=== PATIENT | female | born 1930 | race Caucasian/White ===

== ENCOUNTER 2016-09-19 15:04 | Emergency (ER) | payer MEDICARE, BC ==
[2016-09-19 15:42] VITALS: TEMP 98.2; BMI 22.8
--- NOTE | 2016-09-19 16:33 | DIRPT ---
CLINICAL DATA: 86-year-old female with left hip pain for 2 days, no known injury. Initial encounter. EXAM: LEFT HIP (WITH PELVIS) 2-3 VIEWS COMPARISON: Left hip series 11/18/12 FINDINGS: Since 2012, fractures about the right pubic symphysis with callus formation have developed. These appear chronic. Femoral heads remain normally located. Hip joint spaces appear stable. Elsewhere the pelvis appears intact. Proximal right femur appears grossly intact. Proximal left femur stable and intact. Chronic Aortoiliac calcified atherosclerosis noted. Chronic pelvic phleboliths. IMPRESSION: 1. No acute osseous abnormality identified about the left hip or pelvis. 2. Chronic appearing right pubic symphysis fractures, new since 2012. Electronically Signed By: Robina Gordon M.D. On: 09/19/2016 16:31
[2016-09-19] MEDS ORDERED: ONDANSETRON HCL 4 MG/2 ML VIAL IV ONE (21:30)
[2016-09-19] MEDS ORDERED: MORPHINE 4 MG/ML INJECTION IV ONE (21:30)
[2016-09-19] MEDS ORDERED: NS 1,000 ML IV ONE (21:30)
--- NOTE | 2016-09-19 21:47 | EDPRACDOC ---
ED Hip Problem HPI - General Information Chief Complaint: Hip Pain Stated Complaint: LT LEG PAIN Time Seen by Provider: 09/19/16 20:56 Information Source: Patient Mode of Arrival: Car Home Medications: Home Medications Albuterol Sulfate Nebs [Proventil, Ventolin] 3 ml NEB Q6H PRN 05/11/16 Albuterol Sulfate [Proair Hfa] 2 puff INH Q4-6H PRN 05/11/16 Alprazolam [Xanax] 0.25 mg PO BID PRN 05/11/16 Amlodipine [Norvasc] 10 mg PO DAILY PRN 05/11/16 Ca/D3/Mag#11/Zinc/Gas Engine Operator/[place]/Bor [Caltrate 600+D Plus Tablet] 1 tab PO DAILY 05/11 Citalopram (anti-depressant) [Celexa] 40 mg PO DAILY 05/11/16 Doxepin HCl 150 mg PO QHS 05/11/16 Levothyroxine [Synthroid, Levoxyl] 25 mcg PO DAILY 05/11/16 Mv-Mn/FA/Vit K/Lycop/Lut/Zeaxa [Ocuvite Eye + Multi Tablet] 1 tab PO DAILY 05/11 Ciprofloxacin HCl [Cipro] 500 mg PO BID #20 tab 09/19/16 Fluticasone/Vilanterol [Breo Ellipta 100-25 Mcg INH] 1 each INH DAILY 09/19/16 Oxycodone Immediate Release [Oxycodone Immediate Release (OxyIR)] 5 mg PO Q6H PRN #20 tab 09/19/16 PEG-Electrolytes (Miralax) [Miralax] 17 gm PO DAILY #1 box 09/19/16 Prednisone [Deltasone, Orasone] 20 mg PO BID #12 tab 09/19/16 Allergies/Adverse Reactions: Allergies Allergy/AdvReac Type Severity Reaction Status Date / Time No Known Drug Allergies Allergy Unknown Verified 09/19/16 19:46 - History of Present Illness Onset: 4 days HPI: PT PRESENTS WITH SEVERE LEFT THIGH, LEFT HIP AND GROIN PAIN THAT SHE STATES HAS BEEN WORSENING OVER THE PAST SEVERAL DAYS. STATES SHE HAS NOT FALLEN IN THE LAST FEW DAYS BUT HAS IN THE PAST MONTH. STATES SHE KNOWS SHE HAS CHRONIC PELVIC FRACTURES. STATES THIS PAIN IS WORSE THAN ANY PAIN SHE HAS EVER HAD. PT STATES SHE IS UNABLE TO AMBULATE. Hip Problem Location: Reports: Left, Lateral, Hip, Groin Mechanism: Reports: Unknown Circumstances: Reports: Fall (NO RECENT FALLS) Relevant History: Reports: None Tetanus Up To Date?: No (UNKNOWN) Able to Bear Weight: No Pain Severity: Moderate Associated Signs & Symptoms: Reports: Thigh Pain ED Past Medical History - History Reviewed Yes Nurses notes reviewed and agree except as marked - Patient Medical History Cardiac History: Reports: Hypertension, Hypercholesterolemia Respiratory History: Reports: Asthma, COPD GI/ History: Reports: Gastroesophageal Reflux Musculoskeletal History: Reports: Arthritis (OA) Psychological History: Reports: Depression. Denies: Substance Use Disorder Systemic History: Reports: Hypothyroidism. Denies: Cancer Surgical History: Reports: Cholecystectomy, Tonsillectomy/Adnoidectomy - Family Medical History Reports: Cancer (MOTHER-BREAST), Stroke (SISTER) - Social Medical History Smoking Status: Never smoker Social History: Denies: Amphetamine Use, Substance Use Disorder EDM Review of Systems - Review of Systems ROS Negative Except as Marked: Yes All systems reviewed and were negative except as marked - Physical Exam Constitutional: Alert (PT APPEARS UNCOMFORTABLE) Oriented to: Time, Person, Place Last recorded Vital Signs: Last Vital Signs Temp 98.2 F 09/19/16 15:36 Pulse 108 09/19/16 21:31 Resp 20 09/19/16 21:31 BP 203/93 H 09/19/16 21:31 Pulse Ox 98 09/19/16 21:31 Oxygen Pulse Oxygen Saturation 98 O2 Device Oxygen Flow Rate Fraction of Inspired Oxygen ( FIO2) - HEENT Head: Normal ( normocephalic) Eye Exam: Normal (PERRL, EOMI, Sclera white) Oropharynx: Normal (Pharynx:Moist without exudate,Gums-no swelling) Nose: No Symptoms Reported (septum midline) Neck: Normal (FROM, trachea at midline) - Respiratory/Cardiovascular Respiratory: Normal - CTA (BBS clear to auscultation without adventitious sounds ) Cardiovascular: Normal (RRR without murmur, gallop or rub) - GI Auscultation: Normal (NABS) Palpation: Normal (Soft,No rebound or guarding, non distended) Tenderness: Non tender Ernandez's Sign: Negative - Musculoskeletal Back: Normal (Non-Tender) Extremities: Normal (Normal tone, Pulses 2+ No cyanosis or edema, FROM) - Integumentary Skin: Normal, Warm, Dry Lymphatics: Normal (no adenopathy) - Neurologic Memory Impaired: Normal Motor Function: Normal (Normal tone, Pulses 2+ No cyanosis or edema, FROM) Cranial Nerve: Normal (CN II-X11 intact sensation, strength 5/5) Cerebellar: Normal Mood Description: Normal Perception: Normal ED Hip Problem Physical Exam - Musculoskeletal Hip: Limited ROM, Moderate tenderness Hip Deformity: Normal Pelvis: Tender Thigh: Moderate Tenderness Back: Normal Distal Function/Circulation: Normal - Differential Diagnosis Other - Results All Results Reviewed and Normal except as Highlighted below: Yes 09/19/16 22:20 09/19/16 22:20 Decision Time to Discharge: 23:41 - Departure Disposition: Home Condition: Stable Final Diagnosis: Left hip pain Instructions: RICE: Routine Care for Injuries, Hip Pain (ED) Education/Counseling Given To: Patient Education/Counseling Given Regarding: Diagnosis, Treatment, Prognosis, Follow Up Referrals: Dilshad Hackett MD [Primary Care Provider] - One Week Prescriptions: Ciprofloxacin HCl [Cipro] 500 mg PO BID #20 tab Oxycodone Immediate Release [Oxycodone Immediate Release (OxyIR)] 5 mg PO Q6H PRN #20 tab PRN Reason: Pain PEG-Electrolytes (Miralax) [Miralax] 17 gm PO DAILY #1 box Prednisone [Deltasone, Orasone] 20 mg PO BID #12 tab Additional Instructions: ICE OR HEAT THE AFFECTED AREA ~ WHICHEVER FEELS BETTER. FOLLOW UP WITH PCP NEXT WEEK. RETURN TO THE ED FOR WORSENING SYMPTOMS OR CONCERNS.
[2016-09-19] MEDS ORDERED: Pharmacy Review for Metformin - IV Contrast Given SCH (22:00)
[2016-09-19 22:36] LABS: AUTOMATED BASOPHIL 0.5 % (0-2); AUTOMATED LYMPH 11.9 % (17-44); AUTOMATED MONOCYTE 7.8 % (3-10); AUTOMATED NEUTROPHIL 78.8 % (45-76); MPV 9.3 fL (7.4-10.4)
[2016-09-19 22:43] LABS: RBC/URINE 0-2 (0-5); WBC/URINE 0-2 (0-5)
[2016-09-19 22:44] LABS: LEUKOCYTES/URINE NEG (NEGATIVE); NITRITE/URINE NEG (NEGATIVE); URINE OCCULT BLOOD NEG (NEG/TRACE)
[2016-09-19 22:51] LABS: BLOOD UREA NITROGEN 29 MG/DL (7-17); CALCIUM 9.5 MG/DL (8.4-10.2); CALCULATED OSMOLALITY 270 MOs/Kg (270-290); CHLORIDE 102 mEq/L (98-107); GLUCOSE 94 MG/DL (70-99); SODIUM LEVEL 137 mEq/L (137-146); TOTAL PROTEIN 7.4 G/DL (6.3-8.2)
--- NOTE | 2016-09-19 23:27 | DIRPT ---
CLINICAL DATA: 86-year-old female with left hip and groin pain. EXAM: CT OF THE LOWER LEFT EXTREMITY WITHOUT CONTRAST TECHNIQUE: Multidetector CT imaging of the left was performed according to the standard protocol. COMPARISON: Radiograph dated 09/19/2016 FINDINGS: Evaluation of this exam is limited in the absence of intravenous contrast. There is no acute fracture or dislocation. There is old right pubic bone fracture adjacent to the symphysis pubis. There is osteoarthritic changes of the left hip with proximal migration of the left femur and narrowing of the femoro-acetabular joint space. Constipation. There is diverticulosis of the visualized colon. The soft tissues and musculature appear unremarkable. No fluid collection identified. IMPRESSION: No acute fracture or dislocation. Electronically Signed By: Misha Esteban M.D. On: 09/19/2016 23:25
[2016-09-19] MEDS ORDERED: CIPROFLOXACIN HCL 500 MG TAB PO ONE (23:47)
[2016-09-19] MEDS ORDERED: OXYCODONE HCL 5 MG TABLET PO ONE (23:47)
[2016-09-20 00:04] VITALS: BP 136/63; PULSE 110
== END 2016-09-20 00:03 | disposition home or self-care (01) ==
LOC: ED 15:04
DX: M25.552 Pain in left hip (principal)
CPT/HCPCS: 36415; 73502; 73700; 80053; 81001; 85025; 96361; 96374; 96375; 99284; A9270; J2270; J2405; J3490

== ENCOUNTER 2016-09-27 21:02 | Inpatient (IN) | payer MEDICARE, BC ==
[2016-09-27 21:37] LABS: AUTOMATED BASOPHIL 0.2 % (0-2); AUTOMATED EOSINOPHIL 0.2 % (0-5); AUTOMATED LYMPH 5.8 % (17-44); AUTOMATED MONOCYTE 7.8 % (3-10)
--- NOTE | 2016-09-27 21:38 | EDPRACDOC ---
- General Information Information Source: Patient, [employer] Mode Of Arrival: Ambulance - History of Present Illness Onset: this am Pain Location: Reports: Diffuse Pain Context: Reports: Spontaneous Pain Severity: Moderate Pain Quality: Reports: Aching, Cramping Pain Radiation: Reports: No Radiation Adult Abdominal History: Denies: Abdominal Surgery, Urolithiasis, Bowel Obstruction, Similar Pain (dx) Female Abdominal History: Denies: Abdominal Surgery, UTI, Ectopic, PID, Urolithiasis, Similar Pain (dx) Modifying Factors: improves with: Nothing Female Associated Signs & Symptoms: Reports: Nausea, Vomiting, Diarrhea. Denies : Frequency, Vaginal Bleeding, Hematemesis, Anorexia, Melena, Dysuria, Fever, Urgency, Hematuria, Chills, Vaginal Discharge Oral Intake: Decreased Urinary Output: Normal <Dilshad Osborn - Last Filed: 09/28/16 00:18> <Cassidy Maher - Last Filed: 09/28/16 00:27> - General Information Chief Complaint: Abdominal Pain Stated Complaint: ABD PAIN, N/V Time Seen by Provider: 09/27/16 21:31 Home Medications: Home Medications Albuterol Sulfate Nebs [Proventil, Ventolin] 3 ml NEB Q6H PRN 05/11/16 Albuterol Sulfate [Proair Hfa] 2 puff INH Q4-6H PRN 05/11/16 Alprazolam [Xanax] 0.25 mg PO BID PRN 05/11/16 Amlodipine [Norvasc] 10 mg PO DAILY PRN 05/11/16 Ca/D3/Mag#11/Zinc/Food Service Cashier/[place]/Bor [Caltrate 600+D Plus Tablet] 1 tab PO DAILY 05/11 Citalopram (anti-depressant) [Celexa] 40 mg PO DAILY 05/11/16 Doxepin HCl 150 mg PO QHS 05/11/16 Levothyroxine [Synthroid, Levoxyl] 25 mcg PO DAILY 05/11/16 Mv-Mn/FA/Vit K/Lycop/Lut/Zeaxa [Ocuvite Eye + Multi Tablet] 1 tab PO DAILY 05/11 Ciprofloxacin HCl [Cipro] 500 mg PO BID #20 tab 09/19/16 Fluticasone/Vilanterol [Breo Ellipta 100-25 Mcg INH] 1 each INH DAILY 09/19/16 Oxycodone Immediate Release [Oxycodone Immediate Release (OxyIR)] 5 mg PO Q6H PRN #20 tab 09/19/16 PEG-Electrolytes (Miralax) [Miralax] 17 gm PO DAILY #1 box 09/19/16 Prednisone [Deltasone, Orasone] 20 mg PO BID #12 tab 09/19/16 Allergies/Adverse Reactions: Allergies Allergy/AdvReac Type Severity Reaction Status Date / Time No Known Drug Allergies Allergy Unknown Verified 09/19/16 19:46 - History of Present Illness HPI: PT STATES N/V/D ALL DAY, COMPLAINS OF DIFFUSE CRAMPING ABDOMINAL PAIN, RECENTLY DX WITH DIVERTICULITIS, ON ABX FOR SAME. NO FEVER OR CHILLS, NO CP OR SOBR. ( Dilshad Osborn) ED Past Medical History - History Reviewed Yes Nurses notes reviewed and agree except as marked - Patient Medical History Cardiac History: Reports: Hypertension, Hypercholesterolemia Respiratory History: Reports: Asthma, COPD GI/ History: Reports: Gastroesophageal Reflux Musculoskeletal History: Reports: Arthritis (OA) Psychological History: Reports: Depression. Denies: Substance Use Disorder Systemic History: Reports: Hypothyroidism. Denies: Cancer Surgical History: Reports: Cholecystectomy, Tonsillectomy/Adnoidectomy - Family Medical History Reports: Cancer (MOTHER-BREAST), Stroke (SISTER) - Social Medical History Smoking Status: Never smoker Social History: Denies: Amphetamine Use, Substance Use Disorder ETOH: None Substance Abuse: None <Dilshad Osborn - Last Filed: 09/28/16 00:18> EDM Review of Systems - Review of Systems Constitutional: negative: Chills, Fever, Fatigue, Weakness Eyes: negative: Blurred Vision, Double Vision Ears: negative: Drainage Throat: negative: Pain Nose: negative: Congestion, Discharge Respiratory: negative: Cough, Shortness of Breath, Wheezing Cardiovascular: negative: Chest Pain, Palpitations Gastrointestinal: Diarrhea, Nausea, Pain, Vomiting Genitourinary: negative: Dysuria, Frequency Neurological: negative: Dizziness, Headache, Numbness, Weakness Musculoskeletal: No Symptoms Reported Integumentary: No Symptoms Reported <Dilshad Osborn - Last Filed: 09/28/16 00:18> - Physical Exam Constitutional: Alert (Awake), No apparent distress Oriented to: Time, Person, Place - HEENT Head: Normal ( normocephalic) Eye Exam: Normal (PERRL, EOMI, Sclera white) Oropharynx: Normal (Pharynx:Moist without exudate,Gums-no swelling) Tympanic Membrane: Normal ENT EAC: Normal TMJ: Normal Nose: No Symptoms Reported (septum midline) Neck: Normal (FROM, trachea at midline) - Respiratory/Cardiovascular Respiratory: Normal - CTA (BBS clear to auscultation without adventitious sounds ) Cardiovascular: Normal (RRR without murmur, gallop or rub) - GI Auscultation: Normal (NABS) Palpation: Normal (Soft,No rebound or guarding, non distended) Tenderness: Diffuse, Mild, Other (HERNIA NOTED RLQ). negative: Guarding, Rebound, Rigidity Ernandez's Sign: Negative - Musculoskeletal Back: Normal (Non-Tender) Extremities: Normal (Normal tone, Pulses 2+ No cyanosis or edema, FROM) - Integumentary Skin: Normal, Warm, Dry Lymphatics: Normal (no adenopathy) - Neurologic Memory Impaired: Normal Motor Function: Normal (Normal tone, Pulses 2+ No cyanosis or edema, FROM) Cranial Nerve: Normal (CN II-X11 intact sensation, strength 5/5) Cerebellar: Normal Mood Description: Normal Perception: Normal <Dilshad Osborn - Last Filed: 09/28/16 00:18> - Differential Diagnosis Appendicitis, Bowel Obstruction, Diverticulitis, IBS, Pancreatitis, UTI - Re-evaluation Re-evaluation 1 Re-evaluation Time: 00:21 (NO N/V) - Results 09/27/16 21:30 09/27/16 21:30 - Diagnostic Imaging CT ABD/PELVIS Image interpreted by: Radiologist <Dilshad Osborn - Last Filed: 09/28/16 00:18> - Results 09/27/16 21:30 09/27/16 21:30 <Cassidy Maher - Last Filed: 09/28/16 00:27> - Results WBC 13.0 xk/uL (3.8-10.8) H 09/27/16 21:30 RBC 4.50 xM/uL (4.20-5.40) 09/27/16 21:30 Hgb 13.5 g/dL (12.0-16.0) 09/27/16 21:30 Hct 40.7 % (36-47) 09/27/16 21:30 MCV 91 fL (81-99) 09/27/16 21: MCH 29.9 pg (27-32) 09/27/16 21: MCHC 33.0 g/dl (33-36) 09/27/16 21:30 RDW 13.6 % (11.5-14.5) 09/27/16 21:30 Plt Count 376 xk/uL (130-400) 09/27/16 21: MPV 9.0 fL (7.4-10.4) 09/27/16 21:30 Neut % (Auto) 86.0 % (45-76) H 09/27/16 21: Lymph % (Auto) 5.8 % (17-44) L 09/27/16 21: [place] % (Auto) 7.8 % (3-10) 09/27/16 21: Eos % (Auto) 0.2 % (0-5) 09/27/16: Baso % (Auto) 0.2 % (0-2) 09/27/16 21:30 Absolute Neuts (auto) 11.18 xk/uL (1.7-8.2) H 09/27/16 21: Absolute Lymphs (auto) 0.65 xk/uL (0.65-4.75) 09/27/16 21:30 Sodium 133 mEq/L (137-146) L 09/27/16 21:30 Potassium 4.3 mEq/L (3.5-5.1) 09/27/16 21: Chloride 95 mEq/L (98-107) L 09/27/16 21:30 Carbon Dioxide 29 mMOL/L (22-33) 09/27/16 21:30 Anion Gap 13 mEq/L (8-16) 09/27/16 21:30 BUN 32 MG/DL (7-17) H 09/27/16 21:30 Creatinine 1.30 MG/DL (0.52-1.04) H 09/27/16 21:30 Estimated GFR (MDRD) 39 mL/min (>=60) L 09/27/16 21:30 Glucose 148 MG/DL (70-99) H 09/27/16 21:30 Calculated Osmolality 266 MOs/Kg (270-290) L 09/27/16 21:30 Calcium 10.1 MG/DL (8.4-10.2) 09/27/16 21:30 Total Bilirubin 0.8 MG/DL (0.2-1.3) 09/27/16 21:30 AST 48 IU/L (14-36) H 09/27/16 21:30 ALT 46 IU/L (9-52) 09/27/16 21:30 Alkaline Phosphatase 86 IU/L (55-165) 09/27/16 21:30 Total Protein 7.2 G/DL (6.3-8.2) 09/27/16 21:30 Albumin 4.1 G/DL (3.5-5.0) 09/27/16 21:30 Amylase 258 IU/L (30-110) H 09/27/16 21:30 Lipase 64 U/L (23-300) 09/27/16 21:30 Urine Color Pale yellow 09/27/16 22:45 Urine Clarity Cldy 09/27/16 22:45 Urine pH 8.0 (5.0-8.0) 09/27/16 22:45 Ur Specific Abbott 1.010 (1.003-1.035) 09/27/16 22:45 Urine Protein Neg (NEG/TRACE) 09/27/16 22:45 Urine Glucose (UA) Neg (NEGATIVE) 09/27/16 22:45 Urine Ketones Neg (NEGATIVE) 09/27/16 22:45 Urine Occult Blood Neg (NEG/TRACE) 09/27/16 22:45 Urine Nitrite Neg (NEGATIVE) 09/27/16 22:45 Urine Bilirubin Neg (NEGATIVE) 09/27/16 22:45 Urine Urobilinogen <2.0 MG/DL (0-1) 09/27/16 22:45 Ur Leukocyte Esterase Neg (NEGATIVE) 09/27/16 22:45 Urine RBC 0-2 (0-5) 09/27/16 22:45 Urine WBC 0-2 (0-5) 09/27/16 22:45 Amorphous Sediment Occ 09/27/16 22:45 Urine Bacteria Few (NEG/FEW) 09/27/16 22:45 Lab Results 09/27/16 09/27/16 09/27/16 22:45 21:30 21:30 WBC 13.0 H RBC 4.50 Hgb 13.5 Hct 40.7 MCV 91 MCH 29.9 MCHC 33.0 RDW 13.6 Plt Count 376 MPV 9.0 Neut % (Auto) 86.0 H Lymph % (Auto) 5.8 L King[place]isher % (Auto) 7.8 Eos % (Auto) 0.2 Baso % (Auto) 0.2 Absolute Neuts (auto) 11.18 H Absolute Lymphs (auto) 0.65 Sodium 133 L Potassium 4.3 Chloride 95 L Carbon Dioxide 29 Anion Gap 13 BUN 32 H Creatinine 1.30 H Estimated GFR (MDRD) 39 L Glucose 148 H Calculated Osmolality 266 L Calcium 10.1 Total Bilirubin 0.8 AST 48 H ALT 46 Alkaline Phosphatase 86 Total Protein 7.2 Albumin 4.1 Amylase 258 H Lipase 64 Urine Color Pale yellow Urine Clarity Cldy Urine pH 8.0 Ur Specific Abbott 1.010 Urine Protein Neg Urine Glucose (UA) Neg Urine Ketones Neg Urine Occult Blood Neg Urine Nitrite Neg Urine Bilirubin Neg Urine Urobilinogen <2.0 Ur Leukocyte Esterase Neg Urine RBC 0-2 Urine WBC 0-2 Amorphous Sediment Occ Urine Bacteria Few (Cassidy Maher) - Diagnostic Imaging CT ABD/PELVIS 09/28/16 00:18 CT ABDOMEN AND PELVIS WITH CONTRAST TECHNIQUE: Multidetector CT imaging of the abdomen and pelvis was performed using the standard protocol following bolus administration of intravenous contrast. CONTRAST: 80 cc of Isovue 370. COMPARISON: None available. FINDINGS: Mild patchy and nodular ground-glass opacity within the right lung base, suspicious for small focus of infectious or aspiration pneumonitis. Visualized lung bases are otherwise without acute process. Mild bibasilar atelectasis. Scattered coronary artery calcifications partially visualized. No pleural or pericardial effusion. Liver demonstrates a normal contrast enhanced appearance. Gallbladder absent. Mild intra and extrahepatic biliary dilatation, likely related to post cholecystectomy changes. Spleen, adrenal glands, and pancreas demonstrate a normal contrast enhanced appearance. Kidneys equal in size with symmetric enhancement. Scattered hypodensities within the kidneys too small the characterize, but statistically likely reflects small cysts. No nephrolithiasis or hydronephrosis. No focal enhancing renal mass. Circumferential wall thickening about the distal esophagus, suggesting acute esophagitis. This may be related to recent vomiting as well. Stomach mildly distended with fluid present within the gastric lumen. Multiple dilated loops of small bowel seen clustered within the upper and mid abdomen, measuring up to 3.1 cm. Scattered air-fluid levels present. There is a focal transition point with acute caliber change within the anterior abdomen just to the right of midline (series 3, image 43). Underlying adhesion is suspected. No obstructive mass lesion identified. Ileum is decompressed distally to the level of the ileocecal valve. Findings consistent with mechanical small bowel obstruction. Colon of normal caliber without acute inflammatory changes. Bladder within normal limits. Uterus and ovaries not visualized. No free intraperitoneal air. Small volume free perihepatic fluid, likely reactive. This measures simple fluid density. Fat containing ventral hernia within the right ventral abdomen measures 5 cm. There is curvilinear hypodensity within the left psoas muscle extending from the level of L3-4 inferiorly towards its insertion at the left femur (series 3, image 67). This finding is indeterminate, but does not have the appearance of acute hemorrhage. Left psoas muscle it is mildly enlarged as compared to the right. Extensive atheromatous plaque throughout the intra-abdominal aorta and its branch vessels. No aneurysm. No pathologically enlarged lymph nodes. Scoliosis with advanced multilevel degenerative disc disease and facet arthrosis. No acute osseous abnormality. No worrisome lytic or blastic osseous lesions. Irregularity about the right acetabulum favored to be related to motion. Remotely healed fracture at the right pubis symphysis. Remotely healed left-sided rib fractures also noted. IMPRESSION: 1. Findings consistent with acute small bowel obstruction with focal transition point within the right anterior abdomen. Underlying adhesive disease is suspected. 2. Small volume free fluid within the abdomen, likely reactive. 3. Scattered fluid density within the left psoas muscle, of uncertain etiology and significance. While this finding may reflect sequela of old trauma/chronic hematoma, possible acute infection and/or psoas abscess could also have this appearance. Correlation with physical exam, laboratory values, and history recommended. 4. Patchy and nodular ground-glass opacity within the right lung base, suspicious for small focus of infectious or aspiration pneumonitis. 5. Circumferential wall thickening about the distal esophagus. Finding is nonspecific, but could reflect sequela of esophagitis and/or reflux. Finding may be related to recent vomiting as well. 6. Coronary artery calcifications with extensive atheromatous disease throughout the intra-abdominal aorta and its branch vessels. (Dilshad Osborn) - Departure Education/Counseling Given To: Patient, Family Member Education/Counseling Given Regarding: Diagnosis, Treatment, Prognosis, Follow Up <Dilshad Osborn - Last Filed: 09/28/16 00:18> - Departure Yes I personally saw and evaluated the patient. Disposition: Admit IP To This Hospital Decision to Admit Time: 00:26 Decision to admit date: 09/28/16 Decision to admit: from ED - Physician Consulted Surgery Provider Called: Larry Melara Hospitalist Provider Called: Gerry Gonzalez <Cassidy Maher - Last Filed: 09/28/16 00:27> - Departure Condition: Stable Final Diagnosis: Small bowel obstruction, Dehydration, Esophagitis Referrals: Dilshad Hackett MD [Primary Care Provider] - One Week Prescriptions: No Action Mv-Mn/FA/Vit K/Lycop/Lut/Zeaxa [Ocuvite Eye + Multi Tablet] 1 tab PO DAILY Albuterol Sulfate Nebs [Proventil, Ventolin] 3 ml NEB Q6H PRN PRN Reason: Shortness Of Breath Levothyroxine [Synthroid, Levoxyl] 25 mcg PO DAILY Doxepin HCl 150 mg PO QHS Citalopram (anti-depressant) [Celexa] 40 mg PO DAILY Ca/D3/Mag#11/Zinc/Food Service Cashier/[place]/Bor [Caltrate 600+D Plus Tablet] 1 tab PO DAILY Alprazolam [Xanax] 0.25 mg PO BID PRN PRN Reason: Anxiety Amlodipine [Norvasc] 10 mg PO DAILY PRN PRN Reason: BLOOD PRESSURE Albuterol Sulfate [Proair Hfa] 2 puff INH Q4-6H PRN PRN Reason: Shortness Of Breath Fluticasone/Vilanterol [Breo Ellipta 100-25 Mcg INH] 1 each INH DAILY Oxycodone Immediate Release [Oxycodone Immediate Release (OxyIR)] 5 mg PO Q6H PRN #20 tab PRN Reason: Pain Prednisone [Deltasone, Orasone] 20 mg PO BID #12 tab Ciprofloxacin HCl [Cipro] 500 mg PO BID #20 tab PEG-Electrolytes (Miralax) [Miralax] 17 gm PO DAILY #1 box
[2016-09-27] MEDS ORDERED: NS 1,000 ML IV ONE (21:39)
[2016-09-27] MEDS ORDERED: ONDANSETRON HCL 4 MG/2 ML VIAL IV ONE (21:39)
[2016-09-27 21:55] LABS: BLOOD UREA NITROGEN 32 MG/DL (7-17); CALCIUM 10.1 MG/DL (8.4-10.2); CALCULATED OSMOLALITY 266 MOs/Kg (270-290); CHLORIDE 95 mEq/L (98-107); GLUCOSE 148 MG/DL (70-99); SODIUM LEVEL 133 mEq/L (137-146); TOTAL PROTEIN 7.2 G/DL (6.3-8.2)
[2016-09-27] MEDS ORDERED: Pharmacy Review for Metformin - IV Contrast Given SCH (22:00)
[2016-09-27 23:15] LABS: AMORPHOUS OCC; LEUKOCYTES/URINE NEG (NEGATIVE); NITRITE/URINE NEG (NEGATIVE); RBC/URINE 0-2 (0-5); URINE OCCULT BLOOD NEG (NEG/TRACE); WBC/URINE 0-2 (0-5)
--- NOTE | 2016-09-28 00:09 | DIRPT ---
CLINICAL DATA: Initial valuation for acute abdominal pain, nausea, vomiting, diarrhea. EXAM: CT ABDOMEN AND PELVIS WITH CONTRAST TECHNIQUE: Multidetector CT imaging of the abdomen and pelvis was performed using the standard protocol following bolus administration of intravenous contrast. CONTRAST: 80 cc of Isovue 370. COMPARISON: None available. FINDINGS: Mild patchy and nodular ground-glass opacity within the right lung base, suspicious for small focus of infectious or aspiration pneumonitis. Visualized lung bases are otherwise without acute process. Mild bibasilar atelectasis. Scattered coronary artery calcifications partially visualized. No pleural or pericardial effusion. Liver demonstrates a normal contrast enhanced appearance. Gallbladder absent. Mild intra and extrahepatic biliary dilatation, likely related to post cholecystectomy changes. Spleen, adrenal glands, and pancreas demonstrate a normal contrast enhanced appearance. Kidneys equal in size with symmetric enhancement. Scattered hypodensities within the kidneys too small the characterize, but statistically likely reflects small cysts. No nephrolithiasis or hydronephrosis. No focal enhancing renal mass. Circumferential wall thickening about the distal esophagus, suggesting acute esophagitis. This may be related to recent vomiting as well. Stomach mildly distended with fluid present within the gastric lumen. Multiple dilated loops of small bowel seen clustered within the upper and mid abdomen, measuring up to 3.1 cm. Scattered air-fluid levels present. There is a focal transition point with acute caliber change within the anterior abdomen just to the right of midline (series 3, image 43). Underlying adhesion is suspected. No obstructive mass lesion identified. Ileum is decompressed distally to the level of the ileocecal valve. Findings consistent with mechanical small bowel obstruction. Colon of normal caliber without acute inflammatory changes. Bladder within normal limits. Uterus and ovaries not visualized. No free intraperitoneal air. Small volume free perihepatic fluid, likely reactive. This measures simple fluid density. Fat containing ventral hernia within the right ventral abdomen measures 5 cm. There is curvilinear hypodensity within the left psoas muscle extending from the level of L3-4 inferiorly towards its insertion at the left femur (series 3, image 67). This finding is indeterminate, but does not have the appearance of acute hemorrhage. Left psoas muscle it is mildly enlarged as compared to the right. Extensive atheromatous plaque throughout the intra-abdominal aorta and its branch vessels. No aneurysm. No pathologically enlarged lymph nodes. Scoliosis with advanced multilevel degenerative disc disease and facet arthrosis. No acute osseous abnormality. No worrisome lytic or blastic osseous lesions. Irregularity about the right acetabulum favored to be related to motion. Remotely healed fracture at the right pubis symphysis. Remotely healed left-sided rib fractures also noted. IMPRESSION: 1. Findings consistent with acute small bowel obstruction with focal transition point within the right anterior abdomen. Underlying adhesive disease is suspected. 2. Small volume free fluid within the abdomen, likely reactive. 3. Scattered fluid density within the left psoas muscle, of uncertain etiology and significance. While this finding may reflect sequela of old trauma/chronic hematoma, possible acute infection and/or psoas abscess could also have this appearance. Correlation with physical exam, laboratory values, and history recommended. 4. Patchy and nodular ground-glass opacity within the right lung base, suspicious for small focus of infectious or aspiration pneumonitis. 5. Circumferential wall thickening about the distal esophagus. Finding is nonspecific, but could reflect sequela of esophagitis and/or reflux. Finding may be related to recent vomiting as well. 6. Coronary artery calcifications with extensive atheromatous disease throughout the intra-abdominal aorta and its branch vessels. Electronically Signed By: Felix Waller M.D. On: 09/28/2016 00:06
[2016-09-28] MEDS ORDERED: LR 1,000 ML IV ONE (00:33)
[2016-09-28] MEDS ORDERED: HYDROmorphone 1 MG INJECTION IV PRN ×3 (00:36→15:53)
[2016-09-28] MEDS ORDERED: ONDANSETRON HCL 4 MG/2 ML VIAL IV PRN ×3 (00:36→18:20)
[2016-09-28] MEDS ORDERED: PROMETHAZINE 25 MG/ML VIAL IM PRN (00:36)
[2016-09-28] MEDS ORDERED: PIPERACILLIN AND TAZOBACTAM 4.5 GM in D5W 100 ML IV ONE (01:21)
[2016-09-28] MEDS ORDERED: PROMETHAZINE 25 MG/ML VIAL IV PRN ×3 (01:31→18:20)
[2016-09-28] MEDS ORDERED: ACETAMINOPHEN 325 MG/TAB TABLET PO PRN (01:31)
[2016-09-28] MEDS ORDERED: ACETAMINOPHEN 325 MG SUPP PR PRN (01:31)
[2016-09-28] MEDS ORDERED: GUAIFEN 100 MG-DEXTROMETH 10 MG PER 5 ML PO PRN (01:31)
[2016-09-28] MEDS ORDERED: BENZONATATE 100 MG PERLES PO PRN (01:31)
[2016-09-28] MEDS ORDERED: ALBUTEROL 0.083% 3 ML NEB NEB PRN (01:31)
[2016-09-28] MEDS: Albuterol/Ipratropium Neb 3 ML NEB NEB SCH ×4 (02:15→20:40)
[2016-09-28 03:38] LABS: MPV 9.6 fL (7.4-10.4)
--- NOTE | 2016-09-28 03:39 | HIMCONSMED ---
Consultation Date: 09/28/16 Requesting Physician: Larry Melara Consulting Doctor: Gerry Gonzalez Consult Reason: Medical Management PRIMARY CARE PROVIDER: Dr. Hackett HPI: The patient is a delightful 86 yo woman with a history of asthma who presents with abdominal pain. She had seen the doctor and it was thought she may have diverticulitis. She was started on ciprofloxacin. Onset: 3 or more days ago. Duration: intermittent. Location: generalized but especially in the periumbilical area. Radiation: to back Character: 04/08. Dull pain. Alleviated by: Nothing. Exacerbated by: Nothing. Associated Symptoms: Nausea. Vomiting frequently. Diarrhea. No constipation or bloody stool. Did have episodes of choking with the vomiting. Chronic mild shortness of breath from asthma but is at baseline. Occasional wheezing and cough. Has had some chronic hip and leg pain, and has been taking prednisone for that, but she has completed the prednisone as of yesterday. Treatments: none at home except usual medications and ciprofloxacin. Chief Complaint: abdominal pain - Past Medical and Surgical History Cardiac History: Reports: Hypertension, Hypercholesterolemia Respiratory History: Reports: Asthma GI/ History: Reports: Gastroesophageal Reflux. Denies: Urinary Tract Infection Systemic History: Reports: Hypothyroidism. Denies: Cancer Musculoskeletal History: Reports: Arthritis (OA) Psychological History: Reports: Depression. Denies: Substance Use Disorder Past Surgical History: Reports: Cholecystectomy, Hysterectomy, Tonsillectomy/ Adnoidectomy, Other (Shoulder surgery.) Patient denies history of myocardial infarction or heart disease. Allergies No Known Drug Allergies Allergy (Verified 09/19/16 19:46) Unknown Home Medications Albuterol Sulfate Nebs [Proventil, Ventolin] 3 ml NEB Q6H PRN 05/11/16 Albuterol Sulfate [Proair Hfa] 2 puff INH Q4-6H PRN 05/11/16 Alprazolam [Xanax] 0.25 mg PO BID PRN 05/11/16 Amlodipine [Norvasc] 10 mg PO DAILY PRN 05/11/16 Ca/D3/Mag#11/Zinc/W[employer] Arc/[place]/Bor [Caltrate 600+D Plus Tablet] 1 tab PO DAILY 05/11 Citalopram (anti-depressant) [Celexa] 40 mg PO DAILY 05/11/16 Doxepin HCl 150 mg PO QHS 05/11/16 Levothyroxine [Synthroid, Levoxyl] 25 mcg PO DAILY 05/11/16 Mv-Mn/FA/Vit K/Lycop/Lut/Zeaxa [Ocuvite Eye + Multi Tablet] 1 tab PO DAILY 05/11 Ciprofloxacin HCl [Cipro] 500 mg PO BID #20 tab 09/19/16 Fluticasone/Vilanterol [Breo Ellipta 100-25 Mcg INH] 1 each INH DAILY 09/19/16 Oxycodone Immediate Release [Oxycodone Immediate Release (OxyIR)] 5 mg PO Q6H PRN #20 tab 09/19/16 PEG-Electrolytes (Miralax) [Miralax] 17 gm PO DAILY #1 box 09/19/16 Prednisone [Deltasone, Orasone] 20 mg PO BID #12 tab 09/19/16 - Social History Travel Outside of [place] in the Last 3 Months?: No Smoking Status: Never smoker Social History: Denies: Alcohol Use, Substance Use Disorder - Family History Reports: Cancer (MOTHER-BREAST), Stroke (SISTER) - Review of Systems GENERAL: No Fever, chills, or diaphoresis. Positive for fatigue/malaise. HEENT: No ear pain or discharge. No nasal discharge or bleeding. No throat pain or swelling. No eye pain or eye redness. RESPIRATORY: Chronic mild shortness of breath from asthma but is at baseline. Occasional wheezing and cough. CARDIOVASCULAR: No chest pain or palpitations. GI: Abdominal pain, nausea, vomiting, diarrhea. No constipation, or bloody stool. NEUROLOGICAL: No headache or focal weakness. INTEGUMENT: no rashes, itching, or lesions. LYMPHATIC SYSTEM: no lymph node swelling or pain. MUSCULOSKELETAL: Chronic hip and leg pain but no new pain or joint swelling. GENITOURINARY: No dysuria or hematuria. ENDOCRINE: No polyuria or polydipsia. HEME: No chronic anemia, bleeding, or easy bruising. - Physical Exam Vital Signs: Initial Vitals Temperature 98.2 F 09/27/16 21:09 Pulse Rate 93 09/27/16 21:09 Respiratory Rate 18 09/27/16 21:09 Blood Pressure 160/75 09/27/16 21:09 Pulse Oxygen Saturation 99 09/27/16 21:09 Vital Signs - 24 hr 09/27/16 09/27/16 09/27/16 21:09 22:00 23:00 Temperature 98.2 F Pulse Rate 93 96 88 Respiratory 18 18 18 Rate Blood Pressure 160/75 142/63 139/64 Pulse Oxygen 99 99 96 Saturation 09/28/16 09/28/16 09/28/16 01:01 01:30 02:10 Temperature 98.9 F Pulse Rate 78 110 Respiratory 18 18 18 Rate Blood Pressure 145/79 172/87 169/78 Pulse Oxygen 96 91 Saturation 09/28/16 02:30 Temperature 99.1 F Pulse Rate Respiratory 18 Rate Blood Pressure 145/97 Pulse Oxygen Saturation Weight: 51.4 kg Height: 4 feet 11 inches BMI: 22.9 - Other Exam Other Exam Findings: GENERAL: Ill-appearing, well nourished, in mild acute distress. HEENT: Normocephalic, atraumatic; pupils equal and round. Nares patent, without discharge or bleeding. No oropharyngeal lesions or erythema. Mucous membranes are dry. NECK: is supple, no masses, trachea midline. RESPIRATORY: Clear to auscultation bilaterally. Chest wall movements are symmetric. No use of accessory muscles to breathe. Minimal wheezing. Slight rhonchi in base. No rales. CARDIOVASCULAR: Normal S1, S2. Systolic murmur 2/6. Regular. No rubs, or gallops. PMI non-displaced. Carotids: no carotid bruits. No bradycardia or tachycardia. DP pulses 1-2+ bilaterally. GI: firm, non-distended, hypoactive bowel sounds. No hepatosplenomegaly. Hernia noted to right of midline. Mild tenderness to palpation in the periumbilical area, left lower quadrant, and right lower quadrant. INTEGUMENT: Clean, dry, and intact. No rashes. No lesions. MUSCULOSKELETAL: Moving all extremities. No cyanosis. No clubbing. Edema: none bilaterally. NEUROLOGICAL: Cranial nerves 2-12 grossly intact. Motor 4/5 throughout. Reflexes : 2+ bilaterally. Babinski: toes downgoing bilaterally. Intact Finger to nose. Sensory grossly intact to light touch. Intact rapid alternating movements bilaterally. No pronator drift. PSYCHIATRIC: Fully oriented. Normal and appropriate affect. LYMPHATIC: No cervical lymphadenopathy. No supraclavicular lymphadenopathy. - Lab Results Laboratory Results - last 24 hr 01/29/17 01/29/17 01/29/17 21:30 21:30 22:45 WBC 13.0 H RBC 4.50 Hgb 13.5 Hct 40.7 MCV 91 MCH 29.9 MCHC 33.0 RDW 13.6 Plt Count 376 MPV 9.0 Neut % (Auto) 86.0 H Lymph % (Auto) 5.8 L [place] % (Auto) 7.8 Eos % (Auto) 0.2 Baso % (Auto) 0.2 Absolute Neuts (auto) 11.18 H Absolute Lymphs (auto) 0.65 Sodium 133 L Potassium 4.3 Chloride 95 L Carbon Dioxide 29 Anion Gap 13 BUN 32 H Creatinine 1.30 H Estimated GFR (MDRD) 39 L Glucose 148 H Calculated Osmolality 266 L Calcium 10.1 Corrected Calcium Total Bilirubin 0.8 AST 48 H ALT 46 Alkaline Phosphatase 86 Total Protein 7.2 Albumin 4.1 Amylase 258 H Lipase 64 Urine Color Pale yellow Urine Clarity Cldy Urine pH 8.0 Ur Specific [place] 1.010 Urine Protein Neg Urine Glucose (UA) Neg Urine Ketones Neg Urine Occult Blood Neg Urine Nitrite Neg Urine Bilirubin Neg Urine Urobilinogen <2.0 Ur Leukocyte Esterase Neg Urine RBC 0-2 Urine WBC 0-2 Amorphous Sediment Occ Urine Bacteria Few 09/28/16 09/28/16 02:15 02:15 WBC 13.6 H RBC 4.11 L Hgb 12.4 Hct 37.5 MCV 91 MCH 30.2 MCHC 33.1 RDW 13.9 Plt Count 331 MPV 9.6 Neut % (Auto) Lymph % (Auto) [place] % (Auto) Eos % (Auto) Baso % (Auto) Absolute Neuts (auto) Absolute Lymphs (auto) Sodium 134 L Potassium 4.2 Chloride 96 L Carbon Dioxide 29 Anion Gap 13 BUN 28 H Creatinine 1.20 H Estimated GFR (MDRD) 42 L Glucose 103 H Calculated Osmolality 264 L Calcium 9.5 Corrected Calcium 10.2 Total Bilirubin 0.7 AST 37 H ALT 53 H Alkaline Phosphatase 72 Total Protein 6.2 L Albumin 3.3 L Amylase Lipase Urine Color Urine Clarity Urine pH Ur Specific [place] Urine Protein Urine Glucose (UA) Urine Ketones Urine Occult Blood Urine Nitrite Urine Bilirubin Urine Urobilinogen Ur Leukocyte Esterase Urine RBC Urine WBC Amorphous Sediment Urine Bacteria - Diagnostic Findings EKG: pending. CT abdomen and pelvis, viewed personally: EXAM: CT ABDOMEN AND PELVIS WITH CONTRAST TECHNIQUE: Multidetector CT imaging of the abdomen and pelvis was performed using the standard protocol following bolus administration of intravenous contrast. CONTRAST: 80 cc of Isovue 370. COMPARISON: None available. FINDINGS: Mild patchy and nodular ground-glass opacity within the right lung base, suspicious for small focus of infectious or aspiration pneumonitis. Visualized lung bases are otherwise without acute process. Mild bibasilar atelectasis. Scattered coronary artery calcifications partially visualized. No pleural or pericardial effusion. Liver demonstrates a normal contrast enhanced appearance. Gallbladder absent. Mild intra and extrahepatic biliary dilatation, likely related to post cholecystectomy changes. Spleen, adrenal glands, and pancreas demonstrate a normal contrast enhanced appearance. Kidneys equal in size with symmetric enhancement. Scattered hypodensities within the kidneys too small the characterize, but statistically likely reflects small cysts. No nephrolithiasis or hydronephrosis. No focal enhancing renal mass. Circumferential wall thickening about the distal esophagus, suggesting acute esophagitis. This may be related to recent vomiting as well. Stomach mildly distended with fluid present within the gastric lumen. Multiple dilated loops of small bowel seen clustered within the upper and mid abdomen, measuring up to 3.1 cm. Scattered air-fluid levels present. There is a focal transition point with acute caliber change within the anterior abdomen just to the right of midline (series 3, image 43). Underlying adhesion is suspected. No obstructive mass lesion identified. Ileum is decompressed distally to the level of the ileocecal valve. Findings consistent with mechanical small bowel obstruction. Colon of normal caliber without acute inflammatory changes. Bladder within normal limits. Uterus and ovaries not visualized. No free intraperitoneal air. Small volume free perihepatic fluid, likely reactive. This measures simple fluid density. Fat containing ventral hernia within the right ventral abdomen measures 5 cm. There is curvilinear hypodensity within the left psoas muscle extending from the level of L3-4 inferiorly towards its insertion at the left femur (series 3, image 67). This finding is indeterminate, but does not have the appearance of acute hemorrhage. Left psoas muscle it is mildly enlarged as compared to the right. Extensive atheromatous plaque throughout the intra-abdominal aorta and its branch vessels. No aneurysm. No pathologically enlarged lymph nodes. Scoliosis with advanced multilevel degenerative disc disease and facet arthrosis. No acute osseous abnormality. No worrisome lytic or blastic osseous lesions. Irregularity about the right acetabulum favored to be related to motion. Remotely healed fracture at the right pubis symphysis. Remotely healed left-sided rib fractures also noted. IMPRESSION: 1. Findings consistent with acute small bowel obstruction with focal transition point within the right anterior abdomen. Underlying adhesive disease is suspected. 2. Small volume free fluid within the abdomen, likely reactive. 3. Scattered fluid density within the left psoas muscle, of uncertain etiology and significance. While this finding may reflect sequela of old trauma/chronic hematoma, possible acute infection and/or psoas abscess could also have this appearance. Correlation with physical exam, laboratory values, and history recommended. 4. Patchy and nodular ground-glass opacity within the right lung base, suspicious for small focus of infectious or aspiration pneumonitis. 5. Circumferential wall thickening about the distal esophagus. Finding is nonspecific, but could reflect sequela of esophagitis and/or reflux. Finding may be related to recent vomiting as well. 6. Coronary artery calcifications with extensive atheromatous disease throughout the intra-abdominal aorta and its branch vessels. UPDATE: EK beats per minute. Sinus tachycardia with PACs. Incomplete right bundle branch block. Nonspecific T-wave abnormality. T-wave inversion in lead V2. Reviewed EKG personally. - Assessment (1) Small bowel obstruction K56.69 - OTHER INTESTINAL OBSTRUCTION Acute Present on Admission: Yes Found on CT scan. Plan: Patient tolerating NG tube; continue with LIWS. Further management per Dr. Melara. (2) Aspiration pneumonitis J69.0 - PNEUMONITIS DUE TO INHALATION OF FOOD AND VOMIT Acute Present on Admission: Yes Plan: Cultures ordered. IV Zosyn. Patient has recently been taking PO cipro for suspected diverticulitis. Consider additing further antibiotics depending on hospital course. (3) Esophagitis K20.9 - ESOPHAGITIS, UNSPECIFIED Acute Present on Admission: Yes Noted on CT scan. Plan: Pant (4) Abnormal computed tomography of abdomen and pelvis R93.5 - ABN FINDINGS ON DX IMAGING OF ABD REGIONS, INC RETROPERITON Acute Present on Admission: Yes In addition to findings of SBP, aspiration pneumonitis, and esophagitis, CT scan also revealed: Scattered fluid density within the left psoas muscle, of uncertain etiology and significance. While this finding may reflect sequela of old trauma/chronic hematoma, possible acute infection and/or psoas abscess could also have this appearance. Correlation with physical exam, laboratory values, and history recommended. Plan: Consider further evaluation and possible biopsy depending on course. (5) Nausea & vomiting R11.2 - NAUSEA WITH VOMITING, UNSPECIFIED Acute Present on Admission: Yes Qualifiers: Vomiting type: V Vomiting Intractability: V PRN Zofran, Phenergan. (6) Asthma, mild intermittent, well-controlled J45.20 - MILD INTERMITTENT ASTHMA, UNCOMPLICATED Acute Present on Admission: Yes No evidence of exacerbation. Plan: Continue home medications. Monitor for worsening. Case Care Discussed with: Patient, Nursing Staff, Other (Attending, Dr. Melara) Total Time: 60 min.
[2016-09-28 03:51] LABS: BLOOD UREA NITROGEN 28 MG/DL (7-17); CALC CORRECTED 10.2 MG/DL (8.4-10.2); CALCIUM 9.5 MG/DL (8.4-10.2); CALCULATED OSMOLALITY 264 MOs/Kg (270-290); CHLORIDE 96 mEq/L (98-107); GLUCOSE 103 MG/DL (70-99); SODIUM LEVEL 134 mEq/L (137-146); TOTAL PROTEIN 6.2 G/DL (6.3-8.2)
[2016-09-28] MEDS ORDERED: Vaccine Screening Complete SCH (04:00)
[2016-09-28] MEDS: PANTOPRAZOLE 40 MG VIAL IV SCH ×2 (05:55→19:33)
--- NOTE | 2016-09-28 07:32 | DIRPT ---
CLINICAL DATA: Small-bowel obstruction . EXAM: ABDOMEN - 2 VIEW COMPARISON: CT 09/27/2016. FINDINGS: NG tube noted with its tip projected over the stomach. Persistent distended loops of small bowel noted. Colonic gas pattern is nonspecific with stool in the colon. No free air. New IV contrast from prior CT noted the bladder. Pelvic calcifications noted consistent phleboliths. Severe degenerative changes scoliosis lumbar spine . IMPRESSION: Persistent distended loops of small bowel consistent with small bowel obstruction again noted. NG tube noted in stomach . Electronically Signed By: Dirk Christianson On: 09/28/2016 07:29
--- NOTE | 2016-09-28 07:33 | DIRPT ---
CLINICAL DATA: Aspiration pneumonia. Additional clinical data of obstruction, pneumonia, vomiting, NG tube EXAM: CHEST 2 VIEW COMPARISON: Chest x-ray dated 05/13/2016. FINDINGS: Small airspace opacity at the right lung base is compatible with the given history of aspiration pneumonia. Lungs otherwise clear. Heart size is normal. Overall cardiomediastinal silhouette is stable in size and configuration. Multiple air-fluid levels appreciated within the upper abdomen suggesting a more distal small bowel obstruction. Enteric tube in the stomach. IMPRESSION: 1. Small new airspace opacity at the right lung base compatible with the given history of aspiration pneumonia. 2. Air-fluid levels within the upper abdomen compatible with the given clinical data of small bowel obstruction. NG tube in place. Electronically Signed By: Aleksandr Streeter M.D. On: 09/28/2016 07:31
[2016-09-28] MEDS ORDERED: [UNRECOGNIZED DRUG - OTHER] INH SCH (09:00)
--- NOTE | 2016-09-28 09:26 | PCM.SURGCO ---
Consultation Date: 09/28/16 Requesting Physician: Cassidy Maher Real Estate Utilization Officer: Larry Melara Consult Reason: Bowel Obstruction - History of Present Illness The patient is a very pleasant 86 y/o who presented to the ER with N/V and abdominal pain. She was found to have a SBO on CT scan. I was called to evaluate and treat her. Her repeat AXR show that the SBO is persistent. She has not had any flatus or BM since her symptoms have started. She had open GB and hysterectomy in the past. Last week end she was in the ER for leg pain from a fall and had been put on prednisone for the chronic hip pain. She is finished that. She had been put on some Cipro but I am unsure why. Chief Complaint: abdominal pain - Past Medical and Surgical History Cardiac History: Reports: Hypertension, Hypercholesterolemia. Denies: Coronary Artery Disease, Atrial Fibrillation Respiratory History: Reports: Asthma. Denies: COPD GI/ History: Reports: Gastroesophageal Reflux. Denies: Renal Disease, Urinary Tract Infection Systemic History: Reports: Diabetes, Hypothyroidism. Denies: Cancer Musculoskeletal History: Reports: Arthritis (OA) Psychological History: Reports: Depression. Denies: Anxiety, Alcoholism, Substance Use Disorder Neurological History: Reports: No Significant History. 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 [Caltrate 600+D Plus Tablet] 1 tab PO BID Citalopram (anti-depressant) [Celexa] 40 mg PO DAILY 05/11/16 Doxepin HCl 150 mg PO QHS 05/11/16 Levothyroxine [Synthroid, Levoxyl] 25 mcg PO DAILY 05/11/16 Mv-Mn/FA/Vit K/Lycop/Lut/Zeaxa [Ocuvite Eye + Multi Tablet] 1 tab PO BID Ciprofloxacin HCl [Cipro] 500 mg PO BID #20 tab 09/19/16 Fluticasone/Vilanterol [Breo Ellipta 100-25 Mcg INH] 1 each INH DAILY 09/19/16 Oxycodone Immediate Release [Oxycodone Immediate Release (OxyIR)] 5 mg PO Q6H PRN #20 tab 09/19/16 PEG-Electrolytes (Miralax) [Miralax] 17 gm PO DAILY #1 box 09/19/16 - Social History Travel Outside of [place] in the Last 3 Months?: No Lives: Alone (Family next door.) Smoking Status: Never smoker Social History: Denies: Alcohol Use, Substance Use Disorder - Family History Reports: Cancer (MOTHER-BREAST), Stroke (SISTER) - Review of Systems Constitutional: No Symptoms Reported. negative: Chills, Fever Eyes: No Symptoms Reported. negative: Blurred Vision, Double Vision Ears: No Symptoms Reported. negative: Drainage, Hearing Loss Nose: No Symptoms Reported. negative: Abrasion, Bleeding Mouth: No Symptoms Reported. negative: Pain, Dry Mouth Throat/Neck: No Symptoms Reported. negative: Pain, Hoarseness Respiratory: No Symptoms Reported. negative: Cough, Wheezing Cardiovascular: No Symptoms Reported. negative: Chest Pain, Palpitations Gastrointestinal: Nausea, Vomiting, Abdominal Pain. negative: Diarrhea Genitourinary: No Symptoms Reported. negative: Bleeding, Dysuria Neurological: No Symptoms Reported. negative: Dizziness, Seizure Musculoskeletal:: Osteoarthritis, Stiffness, Joint Pain, Joint Swelling Integumentary: No Symptoms Reported. negative: Bruising, Itching Allergic/Immunologic: No Symptoms Reported. negative: Hives, Itching Hematologic: No Symptoms Reported. negative: Lymphadenopathy, Anemia Endocrine: No Symptoms Reported. negative: Weight Gain, Weight Loss Psychiatric: No Symptoms Reported. negative: Anxiety, Depression - Physical Exam Vital Signs: Initial Vitals Temperature 98.2 F 09/27/16 21:09 Pulse Rate 93 09/27/16 21:09 Respiratory Rate 18 09/27/16 21:09 Blood Pressure 160/75 09/27/16 21:09 Pulse Oxygen Saturation 99 09/27/16 21:09 Constitutional: No apparent distress, Alert Oriented to: Time, Person, Place - HEENT Head: Normal. negative: Laceration, Tender Eye: Normal. negative: Edema, Scleral Icterus Oropharynx: Normal. negative: Membranes Dry, Red ENT EAC: Normal. negative: Blood TMJ: Normal. negative: Crepitance, Tender Nose: No Symptoms Reported. negative: Abrasion, Bleeding Respiratory: Normal - CTA. negative: Diminished, Rhonchi Cardiovascular: Normal, Systolic murmur. negative: Bradycardia, Tachycardia, Irregular, Diastolic murmur - GI Auscultation: Decreased. negative: Bruit Palpation: Other (Distended.). negative: Enlarged liver, Enlarged spleen Tenderness: Diffuse, Mild. negative: Guarding, Rebound Ernandez's Sign: Negative Rectal Exam: Deferred - Exam Deferred: Yes - Musculoskeletal Back: Normal. negative: Abrasion, CVA Tenderness Extremities: Normal. negative: Clubbing, Cyanosis, Edema Spine: non-tender, full range of motion, normal alignment - Integumentary Skin: Normal. negative: Clammy, Diaphoretic Lymphatics: Normal. negative: Adenopathy, Tender - Neurologic Memory Impaired: Normal Motor Function: Normal Cranial Nerve: Normal Cerebellar: Normal Mood Description: Normal Thought: Coherent Perception: Normal - Lab Results 09/28/16 02:15 09/28/16 02:15 - Assessment/Plan (1) Small bowel obstruction K56.69 - OTHER INTESTINAL OBSTRUCTION Acute Comment: Admit for bowel rest, NG decompression, IVF and surgical intervention if nonoperative therapy not successful. (2) Nausea & vomiting R11.2 - NAUSEA WITH VOMITING, UNSPECIFIED Acute V V Comment: Treat underlying disorder, NG tube, medications. (3) Hypertension I10 - ESSENTIAL (PRIMARY) HYPERTENSION Chronic essential hypertension I10 - Essential (primary) hypertension Comment: Control with medications, hospitalist evaluation. (4) Adult hypothyroidism E03.9 - HYPOTHYROIDISM, UNSPECIFIED Chronic Comment: Continue medication. Hospitalist following.
[2016-09-28] MEDS ORDERED: SUCCINYLCHOLINE 20 MG/1 ML INJ 10 ML MDV IV ONE (10:00)
[2016-09-28] MEDS ORDERED: LIDOCAINE 100 MG PFS IV ONE (10:00)
[2016-09-28] MEDS ORDERED: ETOMIDATE 20 MG/10 ML VIAL IV ONE (10:00)
[2016-09-28] MEDS ORDERED: METOPROLOL 5 MG/5 ML SDV IV ONE (10:00)
[2016-09-28] MEDS ORDERED: NEOSTIGMINE 1 MG/1 ML (1:1000) INJ 10 ML MDV IM ONE (10:00)
[2016-09-28] MEDS ORDERED: ROCURONIUM 50 MG/5 ML VIAL IV ONE (10:00)
[2016-09-28] MEDS ORDERED: FENTANYL 250 MCG/5 ML VIAL IV ONE (10:00)
[2016-09-28] MEDS ORDERED: GLYCOPYRROLATE 1 MG VIAL IM ONE (10:00)
[2016-09-28] MEDS: PIPERACILLIN AND TAZOBACTAM 4.5 GM in D5W 100 ML IV SCH ×2 (10:18→19:33)
[2016-09-28] MEDS: METOPROLOL 5 MG/5 ML SDV IV SCH ×2 (12:48→20:31)
--- NOTE | 2016-09-28 14:51 | CAPUEKG ---
[place], [place] Test Date: 2016-09-28 Pat Name: JUDSON HADDAD Department: Room: ICU Gender: Female School Principal: MILY RODRIGUEZ: Requested By: Order Number: Reading MD: John Jefferson Measurements Intervals [place] Rate: 103 P: 71 NV: 134 QRS: 53 QRSD: 100 T: 71 QT: 378 QTc: 495 Interpretive Statements Sinus tachycardia with premature atrial complexes Incomplete right bundle branch block Nonspecific T wave abnormality Since prior tracing, PACs are new Abnormal ECG Electronically Signed On 09-28-16 14:50:35 EST by John Jefferson <[id number]> [id number]
[2016-09-28] MEDS ORDERED: hydrALAZINE 20 MG/ML VIAL IV PRN (15:53)
[2016-09-28] MEDS ORDERED: MEPERIDINE 25 MG/ML TUBEX IV PRN (15:53)
[2016-09-28] MEDS ORDERED: LABETALOL 20 MG/4 ML SYRINGE IV PRN (15:53)
[2016-09-28] MEDS ORDERED: FENTANYL 100 MCG/2 ML VIAL IV PRN (15:53)
[2016-09-28] MEDS ORDERED: ONDANSETRON HCL 4 MG ODT TAB PO PRN ×2 (15:53→18:20)
--- NOTE | 2016-09-28 15:54 | SC.ANESPOS ---
[id number], Hemodynamically Stable, Pain Control Adequate Phase I & II Recovery Complete: Yes Apparent Anesthesia Complication: No : N - Vital Signs Blood Pressure: 116/58 Pulse: 98 Resp Rate: 18 O2 Sat: 90 Temp: 99.5 F
--- NOTE | 2016-09-28 15:57 | HIM.ANES ---
Anesthesia Evaluation & Plan - Focused Review of Systems Cardiac History: Yes: Hx Hypertension, Hx Cardia Arrhythmia (RARELY IRREGULAR HEARTBEAT), Hx Cardiac Disorders, Hx Abnormal Cholesterol/Hyperlipidemia (BUT MILD; NO MEDICATION) HEENT: Yes: Cataract Removal, Macular Degeneration, Hx Ear Problem (CABAZON), Other HEENT Problems Respiratory: Yes: Hx Asthma (Inhaler use 3x/daily), Hx Snoring No: Hx Chronic Obstructive Pulmonary Disease (COPD) Gastrointestinal: Yes: Hx Gastrointestinal Disorders, Hx Obstructive Bowel ( THIS ADM. SBO), Hx Chronic Constipation (TAKES MIRALAX) Genitourinary: No: Hx Renal Disease Neurological/Musculoskeletal: Yes: Hx Back Pain (Pelvic Fx) No: HX Cerebrovascular Accident, Hx Seizures, Hx Neurological Disorders Psychological: No Hx Anxiety, Yes Hx Depression, Yes Hx Mental/Emotional Disorders Endocrine: Yes: Hx Hypothyroidism Blood/Autoimmune: No: Hx Blood Transfusions, Hx AIDS, Hx Hepatitis (type) Smoking Status: Never smoker Past Social History: Denies: Amphetamine Use, Alcohol Use, Substance Use Disorder Alcohol use: None Hx Stress Test (date): No Hx Echocardiogram (date): No Hx Chest Xray (date): Yes (09/28/16) Surgical History: Yes: T&A, Appendectomy, Cholecystectomy, Other (Shoulder surgery.) Other Surgical History: GROWTH ON OVARY (NONCANCEROUS) REMOVED W/ HYSTERECTOMY - Focused Physical Exam NPO since: 09/27/15 Mallampati: Class II Thyromental Distance: Greater than 3 Dental: Normal - no significant findings Cardiovascular/Chest: Normal Respiratory: Lungs clear Any problems with anesthesia, including nausea and vomiting?: No Any relatives with a history of Malignant Hyperthermia?: No Beta Jackelyn given (if appropriate): N/A Other: Problem List Problem Status Onset Abnormal computed tomography of abdomen and pelvis Acute Aspiration pneumonitis Acute Asthma, mild intermittent, well-controlled Acute Dehydration Acute Esophagitis Acute Nausea & vomiting Acute Small bowel obstruction Acute Acute exacerbation of COPD with asthma Acute Depression Acute Hypoxemia Acute Left hip pain Acute Adult hypothyroidism Chronic Hypertension Chronic CBC/BMP/Other 09/28/16 02:15 09/28/16 02:15 Allergies Allergy/AdvReac Type Severity Reaction Status Date / Time No Known Drug Allergies Allergy Unknown Verified 09/19/16 19:46 Home Medications Medication Instructions Recorded Last Taken Type Albuterol Sulfate Nebs [Proventil, 3 ml NEB Q6H PRN 05/11/16 Unknown History Ventolin] Alprazolam [Xanax] 0.25 mg PO HS 05/11/16 09/27/16 History Amlodipine [Norvasc] 10 mg PO DAILY PRN 05/11/16 09/27/16 History Ca/D3/Mag#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 1 tab PO BID 05/11/16 09/19/16 History [Caltrate 600+D Plus Tablet] Citalopram (anti-depressant) 40 mg PO DAILY 05/11/16 05/14/16 07:58 History [Celexa] Doxepin HCl 150 mg PO QHS 05/11/16 09/25/16 History Levothyroxine [Synthroid, Levoxyl] 25 mcg PO DAILY 05/11/16 09/27/16 History Mv-Mn/FA/Vit K/Lycop/Lut/Zeaxa 1 tab PO BID 05/11/16 09/19/16 History [Ocuvite Eye + Multi Tablet] Ciprofloxacin HCl [Cipro] 500 mg PO BID #20 tab 09/19/16 09/27/16 Rx Fluticasone/Vilanterol [Breo 1 puff INH DAILY 09/19/16 09/27/16 History Ellipta 100-25 Mcg INH] Oxycodone Immediate Release 5 mg PO Q6H PRN #20 tab 09/19/16 Unknown Rx [Oxycodone Immediate Release (OxyIR)] Albuterol Sulfate [Proair Hfa] 2 puff INH Q4-6H PRN 09/28/16 Unknown History Nebulizer [Erapid Nebulizer] 1 each .UNKNOWN 09/28/16 09/28/16 History Polyethylene Glycol 3350 [Miralax] 17 gm PO DAILY PRN 09/28/16 Unknown History Height and Weight Patient's height 4 ft 11 in Patient's weight 113 lb 4.8 oz Weight (Calculated Kilograms) 51.392 BMI 22.8 Vital Signs Temperature 99.5 F 09/28/16 15:54 Pulse Rate 98 09/28/16 15:54 Respiratory Rate 18 09/28/16 15:54 Blood Pressure 116/58 L 09/28/16 15:54 Pulse Oxygen Saturation 90 L 09/28/16 15:54 - Anesthetic Plan Anesthesia Type: General ASA Class: 3, E -: I have examined this patient and reviewed the medical record. The patient has been assessed prior to anesthesia. Risks and benefits of anesthesia and anesthetic technique options have been discussed and all questions answered. The patient accepts the risk and desires me to proceed with the planned anesthetic.
[2016-09-28] MEDS: BUPIVACAINE LIPOSOME/PF 1.3% 20 ML VIAL INF ONE ×2 (16:36→19:15)
--- NOTE | 2016-09-28 17:26 | HIMOPRPT ---
DATE OF PROCEDURE: 09/28/16 PREOPERATIVE DIAGNOSES: Small-bowel obstruction. POSTOPERATIVE DIAGNOSES: Small-bowel obstruction, internal hernia secondary to adhesions, ventral incisional hernia. PROCEDURES: Exploratory laparotomy with lysis of adhesions and repair of ventral incisional hernia. SURGEON: Larry Melara MD ANESTHESIA: General. COMPLICATIONS: None. ESTIMATED BLOOD LOSS: Minimal. ANTIBIOTICS: Preoperative antibiotics given. INDICATIONS: The patient is a pleasant 86-year-old female who had come in with a bowel obstruction. She had failed to improve despite conservative treatment and we felt she would benefit from exploratory laparotomy with lysis of adhesions. We explained the risks and benefits of this to her and her family including the risk of infection, bleeding and anesthesia as well as the unforeseen complications. They understood and agreed and she was brought for the above-mentioned procedure. OPERATIVE NOTE: The patient was brought to the operating room and placed on the operating table in the supine position. After adequate amount of general anesthesia she was prepped and draped in sterile manner. When given the okay by anesthesia after appropriate time-out a midline incision was made through the skin subcutaneous tissues was scalpel dissection. Bleeding was controlled with Bovie cautery. Dissection was carried down through the fascia. There was a loop of small bowel that was adhesed underneath the incision from prior surgery. This was twisted around the omentum which was stuck in a ventral hernia lower in the abdomen. We went ahead took the adhesions down and freed up the small bowel and then reduced the omentum from the hernia. The hernia defect was closed with [id number] 1. Ethibond sutures. The small bowel was then run and there were no problems noted. The transition point was easily identified at that adhesion and this once the adhesion was taken down was without problems. We irrigated the abdomen and placed Seprafilm around the adhesions on the bowel. We then brought the fascia together with interrupted [id number] 1. Vicryl sutures. The wound was irrigated and brought together with surgical clips. Dry sterile dressing was applied and the patient was woken and taken recover room in excellent condition with correct sponge counts needle counts.
[2016-09-28] MEDS ORDERED: FENTANYL 100 MCG/2 ML VIAL ONE (17:46)
[2016-09-28] MEDS: FENTANYL 100 MCG/2 ML VIAL IV PRN ×2 (18:16→18:30)
[2016-09-28] MEDS ORDERED: OXYCODONE HCL 5 MG TABLET PO PRN (18:20)
[2016-09-28] MEDS ORDERED: PROMETHAZINE 25 MG TAB PO PRN (18:20)
[2016-09-28] MEDS ORDERED: PROMETHAZINE 25 MG/ML VIAL ONE (19:22)
[2016-09-28] MEDS: HYDROmorphone 1 MG INJECTION IV PRN (19:29)
[2016-09-28] MEDS: Acetaminophen, Intravenous 1,000 MG/100 ML IVBOT IV SCH (20:03)
[2016-09-28] MEDS: BUDESONIDE 0.5 MG NEB NEB SCH (20:40)
[2016-09-28] MEDS: OXYCODONE HCL 5 MG TABLET PO PRN (22:30)
[2016-09-29] MEDS: Albuterol/Ipratropium Neb 3 ML NEB NEB SCH ×4 (02:08→19:58)
[2016-09-29] MEDS: METOPROLOL 5 MG/5 ML SDV IV SCH ×4 (02:38→21:18)
[2016-09-29] MEDS: PIPERACILLIN AND TAZOBACTAM 4.5 GM in D5W 100 ML IV SCH (02:38)
[2016-09-29] MEDS: Acetaminophen, Intravenous 1,000 MG/100 ML IVBOT IV SCH ×2 (02:39→09:33)
[2016-09-29] MEDS: HYDROmorphone 1 MG INJECTION IV PRN (02:59)
[2016-09-29 07:22] LABS: AUTOMATED BASOPHIL 0.2 % (0-2); AUTOMATED EOSINOPHIL 0.7 % (0-5); AUTOMATED LYMPH 5.6 % (17-44); AUTOMATED MONOCYTE 7.7 % (3-10); AUTOMATED NEUTROPHIL 85.8 % (45-76); MPV 9.1 fL (7.4-10.4)
[2016-09-29 07:30] LABS: BLOOD UREA NITROGEN 35 MG/DL (7-17); CALCIUM 8.9 MG/DL (8.4-10.2); CALCULATED OSMOLALITY 263 MOs/Kg (270-290); CHLORIDE 97 mEq/L (98-107); GLUCOSE 97 MG/DL (70-99); SODIUM LEVEL 132 mEq/L (137-146); TOTAL PROTEIN 5.5 G/DL (6.3-8.2)
--- NOTE | 2016-09-29 07:59 | PCM.SURGRO ---
- Subjective Patient: Reports: No new complaints - Objective / Physical Exam Vital Signs: Temperature: 99.5 F (09/29/16 06:46) HR: 98 (09/29/16 06:46)RR: 18 (09/29/16 06: 46) BP: 116/58 (09/29/16 06:46)Pulse Ox: 90 (09/29/16 06:46) General: Cooperative HEENT: Normal, PERRLA, EOMI Respiratory: Normal - CTA. negative: Diminished, Rhonchi Cardiovascular: Regular rate, Regular rate and rhythm Gastrointestinal: Soft, Distended, Bowel Sounds, Tender (Mild as expect after surgery.) Extremities: negative: Swelling, Edema, Clubbing, Cyanosis Psych/Mental Status: Appropriate Neurological: Strength at 5/5 X4 ext, Cranial nerves 3-12 NL - Assessment and Plan (1) Small bowel obstruction Acute K56.69 - OTHER INTESTINAL OBSTRUCTION Present on Admission: Yes Comment/Plan: S/P SRIDHAR and repair of incisional hernia doing well. Routine care. Stopped vancomycin as has increase in Cr and no need for it at this point. (2) Nausea & vomiting Acute R11.2 - NAUSEA WITH VOMITING, UNSPECIFIED Present on Admission: Yes (3) Hypertension Chronic I10 - ESSENTIAL (PRIMARY) HYPERTENSION essential hypertension I10 - Essential (primary) hypertension (4) Adult hypothyroidism Chronic E03.9 - HYPOTHYROIDISM, UNSPECIFIED
[2016-09-29] MEDS: BUDESONIDE 0.5 MG NEB NEB SCH ×2 (08:50→20:01)
[2016-09-29] MEDS: PANTOPRAZOLE 40 MG VIAL IV SCH ×2 (09:33→21:18)
[2016-09-29] MEDS ORDERED: PIPERACILLIN AND TAZOBACTAM 3.375 GM in D5W 100 ML IV SCH (10:00)
--- NOTE | 2016-09-29 14:15 | GENMEDPROG ---
Chief Complaint: SBO, ASP PNA, MILD DEMENTIA, ABD PAIN Subjective Note: PATIENT ALERT DOING WELL EATING ICE Currently: Denies: Cough, Wheezing, PIERRE, SOB, Nausea and Vomiting, Abdominal Pain DVT Prophylaxis: Yes (SCDs) - Physical Examination Vital Signs and I&O: Last Vital Signs Temp 98.2 F 09/29/16 09:30 Pulse 84 09/29/16 09:32 Resp 18 09/29/16 09:30 BP 116/58 L 09/29/16 09:32 Pulse Ox 100 09/29/16 09:30 Oxygen Pulse Oxygen Saturation 100 O2 Device Room Air Oxygen Flow Rate 2 Fraction of Inspired Oxygen ( FIO2) Intake & Output 09/26/16 09/27/16 09/28/16 09/29/16 23:59 23:59 23:59 23:59 Intake Total 2256 332 Output Total 870 700 Balance 1386 -368 Patient's weight 51.392 kg 53.099 kg General: Alert, Cooperative, No acute distress HEENT: Normal, PERRLA, EOMI, Anicteric Sclera, Mucous membr. moist/pink Neck: Full range of motion, Normal Trachea alignment, Normal inspection Lymphatics: Normal Respiratory: Normal - CTA. negative: Diminished, Rhonchi Cardiovascular: Regular rate, Regular rate and rhythm, Normal S1, Normal S2 GI: Non tender, No masses. negative: Normal bowel sounds Extremities/Musculoskeletal: Normal pulses, DJD, FROM. negative: Swelling, Edema, Clubbing, Cyanosis Skin: Warm,Dry and Intact, No rashes, No breakdown Neurological: Normal speech, Strength at 5/5 X4 ext, Normal tone, Cranial nerves 3-12 NL Psych/Mental Status: Appropriate, Cooperative - Assessment (1) Small bowel obstruction Acute K56.69 - OTHER INTESTINAL OBSTRUCTION Comment/Plan: Found on CT scan. S/P SURGERY W/ SRIDHAR Patient tolerating NG tube; continue with LIWS. Further management per Dr. Melara. (2) Abdominal pain Acute R10.9 - UNSPECIFIED ABDOMINAL PAIN Qualifiers: Abdominal location: generalized Qualified Code(s): R10.84 - Generalized abdominal pain (3) Dementia arising in the senium and presenium Acute F03.90 - UNSPECIFIED DEMENTIA WITHOUT BEHAVIORAL DISTURBANCE Comment/ Plan: stable, continue to re-orietn patient, family at bedside (4) Aspiration pneumonitis Acute J69.0 - PNEUMONITIS DUE TO INHALATION OF FOOD AND VOMIT Comment/Plan: Cultures ordered. Patient currently on IV Zosyn.for suspected diverticulitis. (5) Adult hypothyroidism Chronic E03.9 - HYPOTHYROIDISM, UNSPECIFIED Comment/Plan: Tsh level was low normal at 1.0.
[2016-09-29] MEDS ORDERED: ACETAMINOPHEN 650 MG SUPP PR PRN (18:00)
[2016-09-30] MEDS: METOPROLOL 5 MG/5 ML SDV IV SCH ×4 (01:28→20:36)
[2016-09-30] MEDS: Albuterol/Ipratropium Neb 3 ML NEB NEB SCH ×4 (02:55→19:29)
[2016-09-30] MEDS: BUDESONIDE 0.5 MG NEB NEB SCH ×2 (07:18→19:33)
[2016-09-30 07:38] LABS: AUTOMATED BASOPHIL 0.1 % (0-2); AUTOMATED EOSINOPHIL 0.4 % (0-5); AUTOMATED LYMPH 5.5 % (17-44); AUTOMATED MONOCYTE 8.9 % (3-10); AUTOMATED NEUTROPHIL 85.1 % (45-76); MPV 8.7 fL (7.4-10.4)
--- NOTE | 2016-09-30 07:48 | PCM.SURGRO ---
- Subjective Patient: Reports: No new complaints, Feels better - Objective / Physical Exam Vital Signs: Temperature: 98.4 F (09/30/16 06:03) HR: 96 (09/30/16 06:03)RR: 20 (09/30/16 06: 03) BP: 148/65 (09/30/16 06:03)Pulse Ox: 93 (09/30/16 07:18) General: Alert, Oriented x3, Cooperative HEENT: Normal, PERRLA, EOMI Respiratory: Normal - CTA. negative: Diminished, Rhonchi, Wheezes Cardiovascular: Regular rate Gastrointestinal: Soft, Distended, Bowel Sounds, Tender (As expect after surgery.) Extremities: negative: Swelling, Edema, Clubbing, Cyanosis Psych/Mental Status: Appropriate, Normal Affect, Cooperative Neurological: Strength at 5/5 X4 ext, Cranial nerves 3-12 NL Surgical wound: Other (Dressing intact.) - Assessment and Plan (1) Small bowel obstruction Acute K56.69 - OTHER INTESTINAL OBSTRUCTION Present on Admission: Yes Comment/Plan: S/p SRIDHAR doing well. Continue NG till has bowel function. Patient doing well. Routine care. (2) Nausea & vomiting Acute R11.2 - NAUSEA WITH VOMITING, UNSPECIFIED Present on Admission: Yes (3) Hypertension Chronic I10 - ESSENTIAL (PRIMARY) HYPERTENSION essential hypertension I10 - Essential (primary) hypertension (4) Adult hypothyroidism Chronic E03.9 - HYPOTHYROIDISM, UNSPECIFIED
[2016-09-30 08:06] LABS: BLOOD UREA NITROGEN 36 MG/DL (7-17); CALC CORRECTED 9.6 MG/DL (8.4-10.2); CALCIUM 8.4 MG/DL (8.4-10.2); CALCULATED OSMOLALITY 262 MOs/Kg (270-290); CHLORIDE 98 mEq/L (98-107); GLUCOSE 66 mg/dL (70-99); SODIUM LEVEL 133 mEq/L (137-146); TOTAL PROTEIN 5.6 G/DL (6.3-8.2)
[2016-09-30] MEDS: ACETAMINOPHEN 325 MG/TAB TABLET PO PRN (08:22)
[2016-09-30] MEDS: PANTOPRAZOLE 40 MG VIAL IV SCH ×2 (08:25→20:37)
[2016-09-30] MEDS ORDERED: Chloraseptic 6 OZ BOT PO PRN (19:41)
--- NOTE | 2016-09-30 19:42 | GENMEDPROG ---
Chief Complaint: S/P SRIDHAR FOR SBO, POST-OP ILEUS, ASPIRATION PNEUMONIA, DEMENTIA (MILD), Currently: Denies: Cough, Wheezing, PIERRE, SOB, Nausea and Vomiting, Abdominal Pain DVT Prophylaxis: Yes (SCDs) - Physical Examination Vital Signs and I&O: Last Vital Signs Temp 98.7 F 09/30/16 18:00 Pulse 90 09/30/16 18:00 Resp 18 09/30/16 18:00 BP 149/65 09/30/16 18:00 Pulse Ox 97 09/30/16 19:33 Oxygen Pulse Oxygen Saturation 97 O2 Device Room Air Oxygen Flow Rate 2 Fraction of Inspired Oxygen ( FIO2) Intake & Output 09/27/16 09/28/16 09/29/16 09/30/16 23:59 23:59 23:59 23:59 Intake Total 2256 750 571 Output Total 870 1100 1150 Balance 2679 -840 -342 Patient's weight 51.392 kg 53.099 kg 52.872 kg General: Alert, Oriented x3, Cooperative HEENT: Normal, PERRLA, EOMI, Mucous membr. moist/pink, Other (NG TUBE IN NARE) Neck: Full range of motion, Normal Trachea alignment, Normal inspection Lymphatics: Normal Respiratory: Normal - CTA. negative: Diminished, Rhonchi, Wheezes Cardiovascular: Regular rate, Normal S1, Normal S2, Murmurs GI: Soft, Non tender. negative: Normal bowel sounds Extremities/Musculoskeletal: Normal pulses, DJD, FROM. negative: Swelling, Edema, Clubbing, Cyanosis Skin: Warm,Dry and Intact, No breakdown Neurological: Normal speech, Normal tone, Cranial nerves 3-12 NL Psych/Mental Status: Appropriate, Normal Affect, Cooperative Lab/DI/Studies Reviewed: Laboratory Tests 09/30/16 09/30/16 07:00 07:00 WBC 11.8 H Hgb 10.7 L Hct 32.4 L Plt Count 273 Sodium 133 L Potassium 4.1 Chloride 98 Carbon Dioxide 20 L Anion Gap 19 H BUN 36 H Creatinine 1.40 H Estimated GFR (MDRD) 36 L Glucose 66 L Corrected Calcium 9.6 AST 57 H ALT 49 Alkaline Phosphatase 64 Albumin 2.8 L - Assessment (1) Small bowel obstruction Acute K56.69 - OTHER INTESTINAL OBSTRUCTION Comment/Plan: Found on CT scan. S/P SURGERY W/ SRIDHAR Patient tolerating NG tube; continue with LIWS. Further management per Dr. Melara. (2) Abdominal pain Acute R10.9 - UNSPECIFIED ABDOMINAL PAIN Qualifiers: Abdominal location: generalized Qualified Code(s): R10.84 - Generalized abdominal pain Comment/Plan: Patient fairly comfortable, wants NG tube out. Reminded her not to pull on it. Still large amount of NG /gastric secretions and few bowel sounds. Encouraged ambulation with assistance of family or staff members. (3) Dementia arising in the senium and presenium Acute F03.90 - UNSPECIFIED DEMENTIA WITHOUT BEHAVIORAL DISTURBANCE Comment/ Plan: stable, continue to re-orient patient, family at bedside (4) Aspiration pneumonitis Acute J69.0 - PNEUMONITIS DUE TO INHALATION OF FOOD AND VOMIT Comment/Plan: Cultures ordered. Patient currently on IV Zosyn for suspected aspiration pneumonitis. (5) Adult hypothyroidism Chronic E03.9 - HYPOTHYROIDISM, UNSPECIFIED Comment/Plan: Tsh level was low normal at 1.0. Case Care Discussed with: Patient, Family, Nursing Staff Education/Counseling Given To: Patient, Family Member Education/Counseling Given Regarding: Diagnosis, Treatment, Prognosis Critical Care: No Couseling Time (>50% in counseling/coordination): Yes Code: 42120 (12+)
[2016-09-30] MEDS: TEMAZEPAM 15 MG CAP PO PRN (20:44)
[2016-10-01] MEDS: Albuterol/Ipratropium Neb 3 ML NEB NEB SCH ×4 (01:18→20:40)
[2016-10-01] MEDS: METOPROLOL 5 MG/5 ML SDV IV SCH ×4 (02:03→20:42)
[2016-10-01] MEDS: BUDESONIDE 0.5 MG NEB NEB SCH ×2 (07:28→20:46)
[2016-10-01] MEDS: PANTOPRAZOLE 40 MG VIAL IV SCH ×2 (10:27→20:43)
--- NOTE | 2016-10-01 10:42 | PCM.SURGRO ---
- Subjective Post Op Day: 3 Patient: Reports: No new complaints, Feels better, No Flatus, No Bowel Movement. Denies: Nausea, Vomiting - Objective / Physical Exam Vital Signs: Temperature: 98.6 F (10/01/16 09:50) HR: 97 (10/01/16 09:50)RR: 18 (10/01/16 09: 50) BP: 143/63 (10/01/16 09:50)Pulse Ox: 94 (10/01/16 09:50) General: Alert Respiratory: Normal - CTA Cardiovascular: Regular rate and rhythm Gastrointestinal: Soft, Bowel Sounds (Hypoactive), Tender (Mild at the incision) . negative: Distended - Assessment and Plan (1) Small bowel obstruction Acute K56.69 - OTHER INTESTINAL OBSTRUCTION Present on Admission: Yes Comment/Plan: Postop day 3. Await return of bowel function. Once her bowel function returns, would recommend removal of the nasogastric tube and offering liquids orally. Continue medical management of the patient's comorbid conditions.
[2016-10-01] MEDS: D5W/NS 1,000 ML IV SCH (10:56)
[2016-10-01] MEDS: HYDROmorphone 1 MG INJECTION IV PRN (13:10)
[2016-10-01] MEDS ORDERED: HALOPERIDOL 5 MG/ML VIAL IV PRN (13:22)
--- NOTE | 2016-10-01 13:23 | GENMEDPROG ---
Subjective Note: patient confused, distraught, want NG tube out, trying to pull it out Currently: Denies: Cough, Wheezing, PIERRE, SOB, Nausea and Vomiting, Abdominal Pain DVT Prophylaxis: Yes (SCDs) - Physical Examination Vital Signs and I&O: Last Vital Signs Temp 98.6 F 10/01/16 09:50 Pulse 88 10/01/16 10:47 Resp 19 10/01/16 10:47 BP 159/62 10/01/16 10:47 Pulse Ox 96 10/01/16 10:47 Oxygen Pulse Oxygen Saturation 96 O2 Device Room Air Oxygen Flow Rate 2 Fraction of Inspired Oxygen ( FIO2) Intake & Output 09/28/16 09/29/16 09/30/16 10/01/16 23:59 23:59 23:59 23:59 Intake Total 2256 750 571 350 Output Total 870 1100 1300 950 Balance 1386 -350 -729 -600 Patient's weight 51.392 kg 53.099 kg 52.872 kg 51.965 kg General: Alert, Mild distress, Other (agitated) HEENT: Normal, PERRLA, EOMI, Anicteric Sclera, Mucous membr. moist/pink, Other ( NG tube) Neck: Full range of motion, Normal Trachea alignment, Normal inspection Lymphatics: Normal Respiratory: Normal - CTA Cardiovascular: Regular rate and rhythm, Normal S1, Normal S2 GI: Non tender, No masses, Hernia (to L of incision). negative: Normal bowel sounds Extremities/Musculoskeletal: Normal pulses, DJD, FROM, Motor 5/5 throughout. negative: Edema Skin: Warm,Dry and Intact, No rashes, No breakdown Neurological: Normal speech, Strength at 5/5 X4 ext, Normal tone, Cranial nerves 3-12 NL Psych/Mental Status: Agitated, Confused, Disoriented - Assessment (1) Small bowel obstruction Acute K56.69 - OTHER INTESTINAL OBSTRUCTION Comment/Plan: Found on CT scan. S/P SURGERY W/ SRIDHAR Patient agitated by NG tube; continue with LIWS. Use wrist restraints as needed and PRN Haldol. Further management per Dr. Melara. (2) Abdominal pain Acute R10.9 - UNSPECIFIED ABDOMINAL PAIN Qualifiers: Abdominal location: generalized Qualified Code(s): R10.84 - Generalized abdominal pain Comment/Plan: Patient fairly comfortable, wants NG tube out. Reminded her not to pull on it. Still large amount of NG /gastric secretions and few bowel sounds. Encouraged ambulation with assistance of family or staff members. (3) Dementia arising in the senium and presenium Acute F03.90 - UNSPECIFIED DEMENTIA WITHOUT BEHAVIORAL DISTURBANCE Comment/ Plan: stable, continue to re-orient patient, family at bedside (4) Aspiration pneumonitis Acute J69.0 - PNEUMONITIS DUE TO INHALATION OF FOOD AND VOMIT Comment/Plan: Cultures negative to date. Patient currently on IV Zosyn for suspected aspiration pneumonitis. (5) Adult hypothyroidism Chronic E03.9 - HYPOTHYROIDISM, UNSPECIFIED Comment/Plan: Tsh level was low normal at 1.0. Case Care Discussed with: Patient, Consultants, Nursing Staff, Resource Management Education/Counseling Given To: Patient, Family Member Education/Counseling Given Regarding: Diagnosis, Treatment, Prognosis Total Time: 35 min
[2016-10-01] MEDS ORDERED: HALOPERIDOL 5 MG/ML VIAL ONE (13:24)
[2016-10-01] MEDS ORDERED: HALOPERIDOL 5 MG/ML VIAL IM ONE (13:35)
[2016-10-01] MEDS: TEMAZEPAM 15 MG CAP PO PRN (20:43)
[2016-10-02] MEDS: METOPROLOL 5 MG/5 ML SDV IV SCH ×4 (02:02→20:12)
[2016-10-02] MEDS: Albuterol/Ipratropium Neb 3 ML NEB NEB SCH ×4 (02:21→19:23)
[2016-10-02 07:38] LABS: BLOOD UREA NITROGEN 12 MG/DL (7-17); CALCIUM 8.3 MG/DL (8.4-10.2); CALCULATED OSMOLALITY 268 MOs/Kg (270-290); CHLORIDE 101 mEq/L (98-107); GLUCOSE 135 mg/dL (70-99); SODIUM LEVEL 138 mEq/L (137-146)
[2016-10-02] MEDS: BUDESONIDE 0.5 MG NEB NEB SCH ×2 (08:03→19:26)
[2016-10-02] MEDS: PANTOPRAZOLE 40 MG VIAL IV SCH ×2 (08:41→20:19)
[2016-10-02] MEDS: D5W/NS 1,000 ML IV SCH (08:42)
--- NOTE | 2016-10-02 11:38 | GENMEDPROG ---
Subjective Note: Patient intermittently confused, wants to get rid on NG tube, but still no bowel sounds, no BM Notes Reviewed: Yes: Events from last night noted and discussed with Clinical Staff Current Medication List: Reviewed Currently: Denies: Cough, Wheezing, PIERRE, SOB, Nausea and Vomiting, Abdominal Pain DVT Prophylaxis: Yes (SCDs) - Physical Examination Vital Signs and I&O: Last Vital Signs Temp 98.1 F 10/02/16 10:07 Pulse 95 10/02/16 10:07 Resp 20 10/02/16 10:07 BP 167/71 10/02/16 10:07 Pulse Ox 95 10/02/16 08:39 Oxygen Pulse Oxygen Saturation 95 O2 Device Room Air Oxygen Flow Rate 2 Fraction of Inspired Oxygen ( FIO2) Intake & Output 09/29/16 09/30/16 10/01/16 10/02/16 23:59 23:59 23:59 23:59 Intake Total 750 571 765 589 Output Total 1100 1300 2300 1150 Balance -350 -729 -1535 -561 Patient's weight 53.099 kg 52.872 kg 51.965 kg General: Alert, Cooperative, Mild distress, Other (agitated) HEENT: Normal, PERRLA, EOMI, Anicteric Sclera, Mucous membr. moist/pink, Other ( NG tube) Neck: Full range of motion, Normal Trachea alignment, Normal inspection Lymphatics: Normal Respiratory: Normal - CTA Cardiovascular: Regular rate and rhythm, Normal S1, Normal S2 GI: Non tender, No masses, Hernia (to L of incision). negative: Normal bowel sounds (decreased) Extremities/Musculoskeletal: Normal pulses, DJD, FROM, Motor 5/5 throughout. negative: Edema Skin: Warm,Dry and Intact, No rashes, No breakdown Neurological: Normal speech, Strength at 5/5 X4 ext, Normal tone, Cranial nerves 3-12 NL Psych/Mental Status: Agitated, Confused, Disoriented Lab/DI/Studies Reviewed: Laboratory Tests 10/02/16 07:00 Sodium 138 Potassium 3.3 L Chloride 101 Carbon Dioxide 27 Anion Gap 13 BUN 12 Creatinine 0.80 Estimated GFR (MDRD) > 60 Glucose 135 H Calculated Osmolality 268 L Calcium 8.3 L - Assessment (1) Small bowel obstruction Acute K56.69 - OTHER INTESTINAL OBSTRUCTION Comment/Plan: Found on CT scan. S/P SURGERY W/ SRIDHAR Patient agitated by NG tube; continue with LIWS. Use wrist restraints as needed and PRN Haldol. Awaiting return of bowel function. Further management per Dr. Melara. (2) Abdominal pain Acute R10.9 - UNSPECIFIED ABDOMINAL PAIN Qualifiers: Abdominal location: generalized Qualified Code(s): R10.84 - Generalized abdominal pain Comment/Plan: Patient fairly comfortable, wants NG tube out. Reminded her not to pull on it. Still large amount of NG /gastric secretions and few bowel sounds. Encouraged ambulation with assistance of family or staff members. (3) Dementia arising in the senium and presenium Acute F03.90 - UNSPECIFIED DEMENTIA WITHOUT BEHAVIORAL DISTURBANCE Comment/ Plan: stable, continue to re-orient patient, family at bedside (4) Aspiration pneumonitis Acute J69.0 - PNEUMONITIS DUE TO INHALATION OF FOOD AND VOMIT Comment/Plan: Cultures negative to date. Patient currently on IV Zosyn for suspected aspiration pneumonitis. (5) Adult hypothyroidism Chronic E03.9 - HYPOTHYROIDISM, UNSPECIFIED Comment/Plan: Tsh level was low normal at 1.0.
--- NOTE | 2016-10-02 13:59 | PCM.SURGRO ---
- Subjective Chief Complaint: hungry Post Op Day: 4 (laparotomy, lysis of adhesions and repair of ventral hernia) Patient: Reports: No new complaints (The patient denies abdominal pain.), Feels better, No Flatus, No Bowel Movement, Afebrile, Ambulating in [place]. Denies: Voiding without difficulty (Mendez catheter in.), Nausea, Vomiting, Shortness of breath - Objective / Physical Exam Vital Signs: Temperature: 98.1 F (10/02/16 10:07) HR: 95 (10/02/16 10:07)RR: 20 (10/02/16 10: 07) BP: 167/71 (10/02/16 10:07)Pulse Ox: 95 (10/02/16 08:39) General: Alert, Cooperative, No acute distress HEENT: Normal Respiratory: Normal - CTA Cardiovascular: Regular rate and rhythm Gastrointestinal: Soft, Bowel Sounds (Very few bowel sounds). negative: Distended, Tender, Guarding, Firm, Rigid Extremities: negative: Swelling, Edema Psych/Mental Status: Normal Affect, Cooperative. negative: Agitated, Anxious Neurological: Normal speech Lymphatics: Normal - Assessment and Plan (1) Small bowel obstruction Acute K56.69 - OTHER INTESTINAL OBSTRUCTION Present on Admission: Yes Comment/Plan: The patient is postoperative lysis of adhesions. We will continue nasogastric tube and await return of bowel function. The current treatment plan was discussed with the patient, the patient's daughter and the patient's granddaughter. All questions were answered.
[2016-10-02] MEDS: [UNRECOGNIZED DRUG - MIXTURE] IV SCH (19:47)
[2016-10-02] MEDS: OXYCODONE HCL 5 MG TABLET PO PRN (19:48)
[2016-10-02] MEDS: HYDROmorphone 1 MG INJECTION IV PRN (23:32)
[2016-10-03] MEDS: Albuterol/Ipratropium Neb 3 ML NEB NEB SCH ×4 (02:00→19:11)
[2016-10-03] MEDS: METOPROLOL 5 MG/5 ML SDV IV SCH ×4 (02:29→18:40)
[2016-10-03] MEDS: HYDROmorphone 1 MG INJECTION IV PRN ×3 (04:54→18:35)
[2016-10-03 05:40] LABS: BLOOD UREA NITROGEN 11 MG/DL (7-17); CALCIUM 8.3 MG/DL (8.4-10.2); CALCULATED OSMOLALITY 260 MOs/Kg (270-290); CHLORIDE 99 mEq/L (98-107); GLUCOSE 160 mg/dL (70-99); SODIUM LEVEL 134 mEq/L (137-146)
[2016-10-03] MEDS: BUDESONIDE 0.5 MG NEB NEB SCH ×2 (08:36→19:13)
[2016-10-03] MEDS: [UNRECOGNIZED DRUG - MIXTURE] IV SCH ×3 (08:41→22:14)
[2016-10-03] MEDS: PANTOPRAZOLE 40 MG VIAL IV SCH ×2 (08:45→20:49)
[2016-10-03] MEDS: D5W/NS 1,000 ML IV SCH (14:18)
--- NOTE | 2016-10-03 14:48 | GENMEDPROG ---
Chief Complaint: post-op ileus, s/p SRIDHAR for SBO, asp pneumonia, mild dementia Subjective Note: patient state she has had a BM- nurses confirm that she did have small BM Currently: Denies: Cough, Wheezing, PIERRE, SOB, Nausea and Vomiting, Abdominal Pain DVT Prophylaxis: Yes (SCDs) - Physical Examination Vital Signs and I&O: Last Vital Signs Temp 96.5 F L 10/03/16 13:32 Pulse 91 10/03/16 13:32 Resp 18 10/03/16 13:32 BP 166/79 10/03/16 13:32 Pulse Ox 98 10/03/16 13:32 Oxygen Pulse Oxygen Saturation 98 O2 Device Room Air Oxygen Flow Rate 2 Fraction of Inspired Oxygen ( FIO2) Intake & Output 09/30/16 10/01/16 10/02/16 10/03/16 23:59 23:59 23:59 23:59 Intake Total 917 530 0213 1031 Output Total 1300 2300 1675 515 Balance -729 -1535 -438 516 Patient's weight 52.872 kg 51.965 kg 53.24 kg General: Alert, Cooperative, Mild distress, Other (agitated) HEENT: Normal, PERRLA, EOMI, Anicteric Sclera, Mucous membr. moist/pink, Other ( NG tube) Neck: Full range of motion, Normal Trachea alignment, Normal inspection Lymphatics: Normal Respiratory: Normal - CTA Cardiovascular: Regular rate and rhythm, Normal S1, Normal S2 GI: Non tender, No masses, Hernia (to L of incision). negative: Normal bowel sounds (decreased) Extremities/Musculoskeletal: Normal pulses, DJD, FROM, Motor 5/5 throughout. negative: Edema Skin: Warm,Dry and Intact, No rashes, No breakdown Neurological: Normal speech, Strength at 5/5 X4 ext, Normal tone, Cranial nerves 3-12 NL Psych/Mental Status: Agitated, Confused, Disoriented - Assessment (1) Small bowel obstruction Resolved K56.69 - OTHER INTESTINAL OBSTRUCTION Comment/Plan: SBO -S/P SURGERY W/ SRIDHAR Patient agitated by NG tube; will clamp NG tube and give trial of clear liquids. Check abdominal films. Still minimal bowel sounds; although patient had small BM on evening of 10/01. Further management per Dr. Melara. (2) Abdominal pain Acute R10.9 - UNSPECIFIED ABDOMINAL PAIN Qualifiers: Abdominal location: generalized Qualified Code(s): R10.84 - Generalized abdominal pain Comment/Plan: Patient fairly comfortable, wants NG tube out. Reminded her not to pull on it. Still large amount of NG /gastric secretions and few bowel sounds. Encouraged ambulation with assistance of family or staff members. (3) Dementia arising in the senium and presenium Acute F03.90 - UNSPECIFIED DEMENTIA WITHOUT BEHAVIORAL DISTURBANCE Comment/ Plan: stable, continue to re-orient patient, family at bedside (4) Aspiration pneumonitis Acute J69.0 - PNEUMONITIS DUE TO INHALATION OF FOOD AND VOMIT Comment/Plan: Cultures negative to date. Patient currently on IV Zosyn for suspected aspiration pneumonitis. (5) Adult hypothyroidism Chronic E03.9 - HYPOTHYROIDISM, UNSPECIFIED Comment/Plan: Tsh level was low normal at 1.0. Case Care Discussed with: Patient, Family, Nursing Staff Education/Counseling Given To: Patient, Family Member Education/Counseling Given Regarding: Diagnosis, Treatment, Prognosis Total Time: 35 min Critical Care: No Couseling Time (>50% in counseling/coordination): Yes Code: 53635 (12+)
--- NOTE | 2016-10-03 17:09 | DIRPT ---
CLINICAL DATA: Followup ileus EXAM: ABDOMEN - 2 VIEW COMPARISON: 09/28/2016 FINDINGS: Nasogastric tube projects over the stomach. Postoperative midline abdominal kelly noted. Small bowel is diffusely mildly gaseous late distended to a diameter up to 4.4 cm. There is less gas into the cul, which appears relatively decompressed. There does appear to be some gas into the proximal colon. IMPRESSION: Ileus is not excluded but the findings appear more consistent with partial small bowel obstruction. Findings appear similar when compared to prior study. Electronically Signed By: Marcus Payton M.D. On: 10/03/2016 17:07
--- NOTE | 2016-10-03 17:53 | PCM.SURGRO ---
- Subjective Patient: Reports: No new complaints, Bowel Movement - Objective / Physical Exam Vital Signs: Temperature: 96.5 F (10/03/16 13:32) HR: 91 (10/03/16 13:32)RR: 18 (10/03/16 13: 32) BP: 166/79 (10/03/16 13:32)Pulse Ox: 98 (10/03/16 13:32) General: Alert, Cooperative HEENT: Anicteric Sclera Respiratory: Diminished. negative: Rhonchi, Wheezes Cardiovascular: Regular rate and rhythm Gastrointestinal: Soft, Distended, Bowel Sounds. negative: Guarding, Firm, Rigid Extremities: negative: Tenderness, Swelling, Edema Surgical wound site: Clean/Dry, Intact Laboratory/Diagnostics Reviewed: 09/30/16 07:00 10/03/16 04:36 Laboratory Results - last 24 hr 10/03/16 04:36 Sodium 134 L Potassium 3.7 Chloride 99 Carbon Dioxide 28 Anion Gap 11 BUN 11 Creatinine 0.80 Estimated GFR (MDRD) > 60 Glucose 160 H Calculated Osmolality 260 L Calcium 8.3 L - Assessment and Plan (1) Nausea & vomiting Resolved R11.2 - NAUSEA WITH VOMITING, UNSPECIFIED Present on Admission: Yes (2) Small bowel obstruction Resolved K56.69 - OTHER INTESTINAL OBSTRUCTION Present on Admission: Yes (3) Hypertension Chronic I10 - ESSENTIAL (PRIMARY) HYPERTENSION essential hypertension I10 - Essential (primary) hypertension Continue current medications. Plan: Did not tolerated liquids. Will place NGT back to suction. Needs to increase activity.
[2016-10-04] MEDS: Albuterol/Ipratropium Neb 3 ML NEB NEB SCH ×4 (01:06→20:00)
[2016-10-04] MEDS: METOPROLOL 5 MG/5 ML SDV IV SCH ×4 (02:15→21:32)
[2016-10-04] MEDS: OXYCODONE HCL 5 MG TABLET PO PRN (02:15)
[2016-10-04] MEDS: BUDESONIDE 0.5 MG NEB NEB SCH ×2 (07:49→20:01)
[2016-10-04] MEDS: HYDROmorphone 1 MG INJECTION IV PRN ×2 (07:57→21:38)
[2016-10-04] MEDS: [UNRECOGNIZED DRUG - MIXTURE] IV SCH ×2 (09:14→21:31)
[2016-10-04] MEDS: PANTOPRAZOLE 40 MG VIAL IV SCH ×2 (09:14→21:32)
[2016-10-04] MEDS ORDERED: METAXALONE 800 MG TAB PO PRN (12:02)
[2016-10-04] MEDS: ACETAMINOPHEN 325 MG/TAB TABLET PO PRN (12:26)
--- NOTE | 2016-10-04 13:15 | PCM.SURGRO ---
- Subjective Patient: Reports: No new complaints, No Flatus, No Bowel Movement - Objective / Physical Exam Vital Signs: Temperature: 98.5 F (10/04/16 10:20) HR: 87 (10/04/16 10:20)RR: 18 (10/04/16 10: 20) BP: 163/71 (10/04/16 10:20)Pulse Ox: 94 (10/04/16 10:20) General: Alert, Cooperative Cardiovascular: Regular rate and rhythm Gastrointestinal: Distended, Guarding Back: CVA Tenderness Extremities: negative: Swelling, Edema Skin: Warm,Dry and Intact Laboratory/Diagnostics Reviewed: 09/30/16 07:00 10/03/16 04:36 - Assessment and Plan (1) Nausea & vomiting Resolved R11.2 - NAUSEA WITH VOMITING, UNSPECIFIED Present on Admission: Yes (2) Small bowel obstruction Resolved K56.69 - OTHER INTESTINAL OBSTRUCTION Present on Admission: Yes (3) Hypertension Chronic I10 - ESSENTIAL (PRIMARY) HYPERTENSION essential hypertension I10 - Essential (primary) hypertension Plan: Patient remains bloated today. NPO was ordered yesterday but patient received full liquid tray today. Now bloated and wheezing. NGT back to suction. Neb treatments ordered. Awaiting return of bowel function. Increase activity as tolerated.
--- NOTE | 2016-10-04 13:56 | GENMEDPROG ---
Chief Complaint: s/p lysis of adhesions for SBO, dementia, aspiration pneumonitis Currently: Denies: Cough, Wheezing, PIERRE, SOB, Nausea and Vomiting, Abdominal Pain DVT Prophylaxis: Yes (SCDs) - Physical Examination Vital Signs and I&O: Last Vital Signs Temp 98.4 F 10/04/16 13:21 Pulse 75 10/04/16 13:21 Resp 22 10/04/16 13:21 BP 144/67 10/04/16 13:21 Pulse Ox 97 10/04/16 13:21 Oxygen Pulse Oxygen Saturation 97 O2 Device Room Air Oxygen Flow Rate 2 Fraction of Inspired Oxygen ( FIO2) Intake & Output 10/01/16 10/02/16 10/03/16 10/04/16 23:59 23:59 23:59 23:59 Intake Total 765 1237 2261 1148 Output Total 2300 1675 1565 850 Balance -1535 -438 696 298 Patient's weight 51.965 kg 53.24 kg General: Alert, Cooperative HEENT: Normal, PERRLA, EOMI, Anicteric Sclera, Mucous membr. moist/pink, Other ( NG tube remains in pace) Neck: Full range of motion, Normal Trachea alignment, Normal inspection, No Masses palpable Lymphatics: Normal Respiratory: Normal - CTA, Diminished Cardiovascular: Regular rate and rhythm, Normal S1, Normal S2 GI: Non tender, Hernia (just to the right of incision). negative: Normal bowel sounds Extremities/Musculoskeletal: DJD. negative: Swelling, Edema Skin: Warm,Dry and Intact Neurological: Normal speech, Strength at 5/5 X4 ext, Normal tone, Cranial nerves 3-12 NL Psych/Mental Status: Normal Affect, Cooperative, Anxious, Confused, Disoriented - Assessment (1) Small bowel obstruction Resolved K56.69 - OTHER INTESTINAL OBSTRUCTION Comment/Plan: SBO -S/P SURGERY W/ SRIDHAR Patient agitated by NG tube; did not tolerate clear liquids. Continue with NPO status and NG tube. Further management per Dr. Melara. (2) Abdominal pain Acute R10.9 - UNSPECIFIED ABDOMINAL PAIN Qualifiers: Abdominal location: generalized Qualified Code(s): R10.84 - Generalized abdominal pain Comment/Plan: Patient fairly comfortable, wants NG tube out. Reminded her not to pull on it. Still large amount of NG /gastric secretions and few bowel sounds. Encouraged ambulation with assistance of family or staff members. (3) Dementia arising in the senium and presenium Acute F03.90 - UNSPECIFIED DEMENTIA WITHOUT BEHAVIORAL DISTURBANCE Comment/ Plan: stable, continue to re-orient patient, family at bedside (4) Aspiration pneumonitis Acute J69.0 - PNEUMONITIS DUE TO INHALATION OF FOOD AND VOMIT Comment/Plan: Cultures negative to date. Patient currently on IV Zosyn for suspected aspiration pneumonitis. (5) Adult hypothyroidism Chronic E03.9 - HYPOTHYROIDISM, UNSPECIFIED Comment/Plan: Tsh level was low normal at 1.0. Case Care Discussed with: Patient, Consultants, Family, Nursing Staff, Resource Management Education/Counseling Given To: Patient, Family Member Education/Counseling Given Regarding: Diagnosis, Treatment, Prognosis Critical Care: No Couseling Time (>50% in counseling/coordination): Yes Code: 54688 (12+)
[2016-10-04] MEDS ORDERED: ALBUTEROL 0.083% 3 ML NEB NEB SCH ×2 (14:00)
[2016-10-05] MEDS: Albuterol/Ipratropium Neb 3 ML NEB NEB SCH ×4 (01:12→20:18)
[2016-10-05] MEDS: HYDROmorphone 1 MG INJECTION IV PRN (01:53)
[2016-10-05] MEDS: METOPROLOL 5 MG/5 ML SDV IV SCH ×4 (01:54→20:31)
[2016-10-05] MEDS: [UNRECOGNIZED DRUG - MIXTURE] IV SCH ×2 (07:25→11:53)
[2016-10-05] MEDS: BUDESONIDE 0.5 MG NEB NEB SCH ×2 (07:30→20:21)
[2016-10-05] MEDS ORDERED: RACEPINEPHRINE 2.25% 0.5 ML NEB NEB ONE ×2 (07:44→12:47)
[2016-10-05 07:47] LABS: BLOOD UREA NITROGEN 13 MG/DL (7-17); CALCIUM 8.6 MG/DL (8.4-10.2); CALCULATED OSMOLALITY 253 MOs/Kg (270-290); CHLORIDE 96 mEq/L (98-107); GLUCOSE 128 mg/dL (70-99); SODIUM LEVEL 130 mEq/L (137-146)
[2016-10-05] MEDS ORDERED: MORPHINE 2 MG/ML INJECTION NEB PRN (08:42)
[2016-10-05] MEDS ORDERED: METHYLPREDNISOLONE 40 MG/1 ML VIAL IM ONE (09:00)
[2016-10-05] MEDS: METHYLPREDNISOLONE 125 MG/2 ML VIAL IV SCH ×2 (10:12→16:35)
[2016-10-05] MEDS: PANTOPRAZOLE 40 MG VIAL IV SCH ×2 (10:12→20:31)
--- NOTE | 2016-10-05 12:44 | PCM.ENTCON ---
DATE OF CONSULT: 10/05/16 REASON FOR CONSULTATION: Stridor. HISTORY OF PRESENT ILLNESS: This patient is an 86-year-old female who is status post-exploratory laparotomy and small bowel resection, secondary to small -bowel obstruction. The patient's surgery was unremarkable. An NG-tube was placed postoperatively. According to the nursing staff and hospitalist, the patient pulled out her NG tube over the weekend. The family and hospitalist notice the patient had mild to moderate stridor. The patient was treated with racemic epinephrine nebulizer therapy followed by racemic morphine nebulizer therapy, as well as IV Solu-Medrol steroid therapy. She was transferred to the ICU earlier this morning. ENT consultation was placed to further evaluate her stridor. Since medical management of her symptoms, she has noticed improvement in her stridor. She denies shortness of breath. She does admit to having some mild stridor still. An NG tube was subsequently placed back in her right nasal cavity. PAST MEDICAL HISTORY: Pertinent for recent small-bowel obstruction. PAST SURGICAL HISTORY: Exploratory laparotomy and small bowel resection, . SOCIAL HISTORY: Never smoker Allergies No Known Drug Allergies Allergy (Verified 09/19/16 19:46) Unknown Home Medication List Albuterol Sulfate [Proair Hfa] 2 puff INH Q4-6H PRN 09/28/16 [History] Nebulizer [Erapid Nebulizer] 1 each MC .UNKNOWN 09/28/16 [History] Polyethylene Glycol 3350 [Miralax] 17 gm PO DAILY PRN 09/28/16 [History] Loratadine [Claritin] 10 mg PO DAILY 10/01/16 [History] PHYSICAL EXAMINATION: GENERAL APPEARANCE: Awake, alert, and oriented. Czno-[id number] inspiratory stridor is noted, however, the patient is in no acute respiratory distress. VITAL SIGNS: Temperature: 98.4 F (10/05/16 09:30) HR: 92 (10/05/16 10:15) RR: 18 (10/05/16 09:30) BP: 139/66 (10/05/16 10:15) Pulse Ox: 100% (10/05/16 10:15) on 2 L nasal cannula. HEAD: Normocephalic, atraumatic. EARS: Bilateral auricles were normal in appearance, no otorrhea noted. EYES: Bilateral extraocular muscles were intact. NOSE: Nasogastric tube seen in the right nasal cavity. The nasal septum was mildly deviated to the left side anteriorly. ORAL: Slightly dry oral mucosa. NECK: Supple. Flexible fiberoptic nasopharyngolaryngoscopy: Clear postnasal drip seen in the nasopharynx. Base of tongue demonstrated normal appearing lingual lymphoid tissue. The supraglottic airway did not demonstrate any mucosal masses or lesions. Both vocal cords were equally mobile and met at the midline on phonation. Mild sluggish mobility of both vocal cords were noted. Moderate mucosal edema noted to the false vocal fold and bilateral true vocal cord mucosa. Moderate to severe mucosal edema noted over the arytenoid cartilages, much worse on the left side compared to the right. Overall, no obstruction of the supraglottic airway was noted. The subglottis could not be fully visualized. Assessment: 1. Stridor, appears to be well controlled. The patient does not appear to be in acute respiratory distress. 2. Laryngeal and vocal cord mucosal edema. 3. Status post recent small-bowel resection surgery, with right nasogastric tube in place. Recommendations: 1. Continue with supplemental oxygen and continuous pulse oximetry monitoring. 2. I would recommend IV steroid therapy with a taper over the next 3-4 days. 3. I would also recommend continued nebulizer therapy. 4. Keep head of bed elevated. 5. Oral intake and removal of nasogastric tube, strictly as per General Surgery.
[2016-10-05] MEDS ORDERED: RACEPINEPHRINE 2.25% 0.5 ML NEB NEB PRN (12:47)
--- NOTE | 2016-10-05 13:42 | PCM.SURGRO ---
- Subjective Patient: Reports: No Bowel Movement, Other (Had stridor this am and was brought to ICU. Evaulated by ENT and was found to have edema of larynx but cords functioning. No other c/o's. Had BM.) - Objective / Physical Exam Vital Signs: Temperature: 98.4 F (10/05/16 09:30) HR: 92 (10/05/16 10:15)RR: 18 (10/05/16 09: 30) BP: 139/66 (10/05/16 10:15)Pulse Ox: 100 (10/05/16 10:15) General: Alert, Cooperative HEENT: Normal, PERRLA, EOMI Respiratory: Normal - CTA. negative: Diminished, Rhonchi Cardiovascular: Regular rate Gastrointestinal: Soft, Bowel Sounds. negative: Distended, Tender Extremities: negative: Tenderness, Swelling, Edema, Clubbing Psych/Mental Status: Appropriate Neurological: Strength at 5/5 X4 ext, Cranial nerves 3-12 NL Surgical wound: Clean/Dry, Intact, Approximated - Assessment and Plan (1) Small bowel obstruction Resolved K56.69 - OTHER INTESTINAL OBSTRUCTION Present on Admission: Yes Comment/Plan: Improving. Will clamp NG and she how she tolerates clears. (2) Nausea & vomiting Resolved R11.2 - NAUSEA WITH VOMITING, UNSPECIFIED Present on Admission: Yes Comment/Plan: Improved. (3) Hypertension Chronic I10 - ESSENTIAL (PRIMARY) HYPERTENSION essential hypertension I10 - Essential (primary) hypertension Comment/Plan: Medical management. (4) Adult hypothyroidism Chronic E03.9 - HYPOTHYROIDISM, UNSPECIFIED Comment/Plan: Treat medically.
--- NOTE | 2016-10-05 14:32 | GENMEDPROG ---
Chief Complaint: Patient with stridor this morning not get her breath. Subjective Note: I was called emergently to this patient's bedside due to stridor. Her O2 sats were normal and in the 90s. She was able to speak only intermittently. During the night the patient had pulled out her NG tube in there has been a significant amount of bilious drainage from it. I suspect that bilious drainage from the NG tube got on her vocal cords causing her to have an irritation. She was given a dose of racemic epinephrine nebulized and had some improvement with that but then required a dose of morphine nebulized as well as IV steroids. The patient was transferred to the ICU and Dr. Kyler Clemente was consulted. Notes Reviewed: Yes: Events from last night noted and discussed with Clinical Staff Current Medication List: Reviewed Currently: Reports: Other (Significant amounts of stridor). Denies: Cough, Wheezing, PIERRE, SOB, Nausea and Vomiting, Abdominal Pain DVT Prophylaxis: Yes (SCDs) - Physical Examination Vital Signs and I&O: Last Vital Signs Temp 98.4 F 10/05/16 09:30 Pulse 94 10/05/16 14:00 Resp 18 10/05/16 09:30 BP 135/64 10/05/16 14:00 Pulse Ox 100 10/05/16 10:15 Oxygen Pulse Oxygen Saturation 100 O2 Device Nasal Cannula Oxygen Flow Rate 2 Fraction of Inspired Oxygen ( FIO2) Intake & Output 10/02/16 10/03/16 10/04/16 10/05/16 23:59 23:59 23:59 23:59 Intake Total 1237 2261 2630 693 Output Total 1675 1565 1330 1700 Balance -581 935 7241 -1007 Patient's weight 53.24 kg 53.609 kg General: Alert, Cooperative HEENT: Normal, PERRLA, EOMI, Anicteric Sclera, Mucous membr. moist/pink, Other ( NG tube remains in pace) Neck: Full range of motion, Normal Trachea alignment, Normal inspection, No Masses palpable Lymphatics: Normal Respiratory: Normal - CTA, Diminished, Stridor. negative: Rhonchi, Wheezes Cardiovascular: Regular rate and rhythm, Normal S1, Normal S2 GI: Non tender, Hernia (just to the right of incision). negative: Normal bowel sounds Extremities/Musculoskeletal: DJD. negative: Swelling, Edema Skin: Warm,Dry and Intact Neurological: Normal speech, Strength at 5/5 X4 ext, Normal tone, Cranial nerves 3-12 NL Psych/Mental Status: Normal Affect, Cooperative, Anxious, Confused, Disoriented Lab/DI/Studies Reviewed: Abnormal Lab Results 10/05/16 07:00 Sodium 130 L Potassium 5.5 H D Chloride 96 L Estimated GFR (MDRD) 59 L Glucose 128 H Calculated Osmolality 253 L - Assessment (1) Laryngeal stridor Acute J38.5 - LARYNGEAL SPASM Comment/Plan: Laryngeal stridor suspected due to acute contamination with bile and bilious contents from her NG tube when she pulled out the tube last night. I have discussed the case at length with Dr. Clemente and have consulted him. Plan is to continue steroids and morphine nebs and p.r.n. racemic epi. Patient's oxygenation status is good. (2) Small bowel obstruction Resolved K56.69 - OTHER INTESTINAL OBSTRUCTION Comment/Plan: Continue NG tube in management per Dr. Melara. Patient did have a bowel movement today. (3) Abdominal pain Acute R10.9 - UNSPECIFIED ABDOMINAL PAIN Qualifiers: Abdominal location: generalized Qualified Code(s): R10.84 - Generalized abdominal pain Comment/Plan: Continue management per Dr. Melara. Abdominal pain improving. (4) Aspiration pneumonitis Acute J69.0 - PNEUMONITIS DUE TO INHALATION OF FOOD AND VOMIT Comment/Plan: Cultures negative to date. Patient currently on IV Zosyn for suspected aspiration pneumonitis. (5) Adult hypothyroidism Chronic E03.9 - HYPOTHYROIDISM, UNSPECIFIED Comment/Plan: Tsh level was low normal at 1.0. (6) Dementia arising in the senium and presenium Acute F03.90 - UNSPECIFIED DEMENTIA WITHOUT BEHAVIORAL DISTURBANCE Comment/ Plan: stable, continue to re-orient patient, family at bedside - Plan Patient to transfer to ICU given concerns about her airway. Await further information from Dr. Kyler Clemente. Continue to monitor closely. Postop management per Dr. Melara. Disposition Plan: Hopefully to skilled facility. Case Care Discussed with: Patient, Consultants, Family, Nursing Staff Education/Counseling Given To: Patient, Family Member Education/Counseling Given Regarding: Diagnosis, Treatment, Prognosis, Follow Up , Disposition Plan Total Time: 45 minutes. Critical Care: Yes Couseling Time (>50% in counseling/coordination): No
[2016-10-05] MEDS: D5W/NS 1,000 ML IV SCH (15:50)
[2016-10-05] MEDS: TEMAZEPAM 15 MG CAP PO PRN (20:31)
[2016-10-05] MEDS: ACETAMINOPHEN 325 MG/TAB TABLET PO PRN (21:45)
[2016-10-06] MEDS: Albuterol/Ipratropium Neb 3 ML NEB NEB SCH ×4 (00:49→21:54)
[2016-10-06] MEDS: METHYLPREDNISOLONE 125 MG/2 ML VIAL IV SCH ×3 (01:43→21:18)
[2016-10-06] MEDS: METOPROLOL 5 MG/5 ML SDV IV SCH ×4 (01:45→21:19)
[2016-10-06] MEDS: D5W/NS 1,000 ML IV SCH ×3 (02:45→15:16)
[2016-10-06 06:23] LABS: MPV 8.8 fL (7.4-10.4)
[2016-10-06 06:40] LABS: BLOOD UREA NITROGEN 10 MG/DL (7-17); CALCIUM 8.6 MG/DL (8.4-10.2); CALCULATED OSMOLALITY 263 MOs/Kg (270-290); CHLORIDE 100 mEq/L (98-107); GLUCOSE 178 mg/dL (70-99); SODIUM LEVEL 135 mEq/L (137-146); TOTAL PROTEIN 5.3 G/DL (6.3-8.2)
[2016-10-06] MEDS: PANTOPRAZOLE 40 MG VIAL IV SCH ×2 (07:51→21:18)
[2016-10-06 08:15] LABS: SEG NEUTROPHIL 96 % (45-76); TOTAL CELL COUNT 100
--- NOTE | 2016-10-06 08:18 | GENMEDPROG ---
Subjective Note: 86-year-old female transferred to ICU yesterday due to stridor. Today she has no stridor her voice is clear she has no difficulty with breathing. She is anxious to have the NG tube removed. She did have a bowel movement yesterday. Notes Reviewed: Yes: Events from last night noted and discussed with Clinical Staff Current Medication List: Reviewed Currently: Reports: Other (Significant amounts of stridor). Denies: Cough, Wheezing, PIERRE, SOB, Nausea and Vomiting, Abdominal Pain DVT Prophylaxis: Yes (SCDs) - Physical Examination Vital Signs and I&O: Last Vital Signs Temp 97.8 F 10/06/16 03:00 Pulse 92 10/06/16 07:52 Resp 16 10/06/16 06:00 BP 169/70 10/06/16 07:52 Pulse Ox 100 10/06/16 06:00 Oxygen Pulse Oxygen Saturation 100 O2 Device Nasal Cannula Oxygen Flow Rate 2 Fraction of Inspired Oxygen ( FIO2) Intake & Output 10/03/16 10/04/16 10/05/16 10/06/16 23:59 23:59 23:59 23:59 Intake Total 2261 2630 2325 715 Output Total 1565 1330 2725 550 Balance 696 1300 -400 165 Patient's weight 53.24 kg 53.609 kg 53.796 kg General: Alert, Cooperative HEENT: Normal, PERRLA, EOMI Respiratory: Normal - CTA. negative: Diminished, Rhonchi Cardiovascular: Regular rate GI: Normal bowel sounds (normal active sounds), Soft (non-distended), Non tender , No hepatospenomegaly, No masses Extremities/Musculoskeletal: negative: Tenderness, Swelling, Edema, Clubbing Skin: Warm,Dry and Intact, No rashes, No significant lesion Neurological: Strength at 5/5 X4 ext (Motor 5/5 throughout.), Normal tone, Cranial nerves 3-12 NL ( 2-12 grossly intact.) Psych/Mental Status: Appropriate Lab/DI/Studies Reviewed: Abnormal Lab Results 10/06/16 10/06/16 10/06/16 05:40 05:40 05:40 RBC 3.36 L Hgb 10.2 L Hct 30.3 L Seg Neuts % (Manual) 96 H Lymphocytes % (Manual) 2 L Absolute Lymphocytes 0.12 L Sodium 135 L Glucose 178 H Calculated Osmolality 263 L Magnesium 1.50 L Total Protein 5.3 L Albumin 2.6 L - Assessment (1) Laryngeal stridor Acute J38.5 - LARYNGEAL SPASM Comment/Plan: Stridor is resolved. Will begin to wean steroids. (2) Small bowel obstruction Resolved K56.69 - OTHER INTESTINAL OBSTRUCTION Comment/Plan: Continue NG tube in management per Dr. Melara. Patient did have a bowel movement yesterday. (3) Abdominal pain Acute R10.9 - UNSPECIFIED ABDOMINAL PAIN Qualifiers: Abdominal location: generalized Qualified Code(s): R10.84 - Generalized abdominal pain Comment/Plan: Continue management per Dr. Melara. Abdominal pain improving. Expected postop discomfort (4) Aspiration pneumonitis Acute J69.0 - PNEUMONITIS DUE TO INHALATION OF FOOD AND VOMIT Comment/Plan: Cultures negative to date. Zosyn was discontinued September 29. (5) Adult hypothyroidism Chronic E03.9 - HYPOTHYROIDISM, UNSPECIFIED Comment/Plan: Tsh level was low normal at 1.0. (6) Hypomagnesemia Acute E83.42 - HYPOMAGNESEMIA Comment/Plan: Replete orally and IV once able to take orals. (7) Dementia arising in the senium and presenium Acute F03.90 - UNSPECIFIED DEMENTIA WITHOUT BEHAVIORAL DISTURBANCE Comment/ Plan: stable, continue to re-orient patient, no family at bedside this morning. - Plan Patient improved today stable to transfer back to [facility]. Disposition Plan: Hopefully to skilled facility. Case Care Discussed with: Patient, Consultants (Dr. Melara), Nursing Staff Education/Counseling Given To: Patient Education/Counseling Given Regarding: Diagnosis, Treatment, Prognosis, Follow Up , Disposition Plan Total Time: 45 minutes Critical Care: No Couseling Time (>50% in counseling/coordination): No
--- NOTE | 2016-10-06 08:32 | PCM.SURGRO ---
- Subjective Patient: Reports: No new complaints, Feels better - Objective / Physical Exam Vital Signs: Temperature: 97.8 F (10/06/16 03:00) HR: 92 (10/06/16 07:52)RR: 16 (10/06/16 06: 00) BP: 169/70 (10/06/16 07:52)Pulse Ox: 100 (10/06/16 06:00) General: Alert, Cooperative HEENT: Normal, PERRLA, EOMI, Other (No stridor.) Respiratory: Normal - CTA. negative: Rhonchi Cardiovascular: Regular rate, Regular rate and rhythm Gastrointestinal: Soft, Bowel Sounds. negative: Distended, Tender Extremities: negative: Edema, Clubbing, Cyanosis Psych/Mental Status: Appropriate Neurological: Strength at 5/5 X4 ext, Cranial nerves 3-12 NL Skin: Warm,Dry and Intact, No rashes, No breakdown Surgical wound: Clean/Dry, Intact, Approximated. negative: Erythema, Discharge - Assessment and Plan (1) Small bowel obstruction Resolved K56.69 - OTHER INTESTINAL OBSTRUCTION Present on Admission: Yes Comment/Plan: Has return of bowel function. Will d/c NG and see how she does with clear liquids. Will not advance to fast as appears significantly constipated on XRAY. Ok to transfer to floor and ambulate. Ok to d/c new. (2) Nausea & vomiting Resolved R11.2 - NAUSEA WITH VOMITING, UNSPECIFIED Present on Admission: Yes (3) Hypertension Chronic I10 - ESSENTIAL (PRIMARY) HYPERTENSION essential hypertension I10 - Essential (primary) hypertension (4) Adult hypothyroidism Chronic E03.9 - HYPOTHYROIDISM, UNSPECIFIED
[2016-10-06] MEDS: Magnesium Sulfate 2 gm/D5W 2 GM/50 ML RTU IV SCH ×2 (08:44→10:31)
[2016-10-06] MEDS: BUDESONIDE 0.5 MG NEB NEB SCH ×2 (08:53→21:57)
[2016-10-06] MEDS: MAGNESIUM OXIDE 400 MG TAB PO SCH ×2 (14:08→17:07)
[2016-10-06] MEDS ORDERED: ALBUTEROL 6.7 GM MDI INH PRN (14:19)
[2016-10-06] MEDS ORDERED: AMLODIPINE 10 MG TAB PO PRN (14:19)
[2016-10-06] MEDS ORDERED: OXYCODONE HCL 5 MG TABLET PO PRN (14:19)
[2016-10-06] MEDS ORDERED: ALPRAZOLAM 0.25 MG TAB PO PRN (14:19)
[2016-10-06] MEDS ORDERED: ALBUTEROL 0.083% 3 ML NEB NEB PRN (14:19)
[2016-10-06] MEDS ORDERED: Non-Formulary Medication ITEM (Nebulizer [Erapid Nebulizer] 1 EACH) MC SCH (14:30)
[2016-10-06] MEDS: VITAMINS, MULTIPLE CAP PO SCH (17:07)
[2016-10-06] MEDS: LEVOTHYROXINE 25 MCG (0.025 MG) TAB PO SCH (17:07)
[2016-10-06] MEDS: CALCIUM CARBONATE + VITAMIN D 500 MG TAB PO SCH (17:07)
[2016-10-06] MEDS: Citalopram HBr 40 MG TABLET PO SCH (17:07)
[2016-10-06] MEDS ORDERED: [UNRECOGNIZED DRUG - OTHER] PO SCH (21:00)
[2016-10-06] MEDS ORDERED: Non-Formulary Medication ITEM (Ca/D3/Mag#11/Zinc/Cop/Mang/Bor [Caltrate 600+D Plus Table PO SCH (21:00)
[2016-10-06] MEDS ORDERED: DOXEPIN HCL 150 MG PO SCH (21:00)
[2016-10-06] MEDS: DOXEPIN 25 MG CAP PO SCH (21:19)
[2016-10-06] MEDS: TEMAZEPAM 15 MG CAP PO PRN (21:19)
[2016-10-07] MEDS: Albuterol/Ipratropium Neb 3 ML NEB NEB SCH ×4 (02:13→20:28)
[2016-10-07] MEDS: METOPROLOL 5 MG/5 ML SDV IV SCH ×2 (02:37→09:05)
[2016-10-07] MEDS: D5W/NS 1,000 ML IV SCH (02:47)
[2016-10-07 05:16] LABS: MPV 8.4 fL (7.4-10.4)
[2016-10-07 05:30] LABS: BLOOD UREA NITROGEN 10 MG/DL (7-17); CALCIUM 8.2 MG/DL (8.4-10.2); CALCULATED OSMOLALITY 261 MOs/Kg (270-290); CHLORIDE 99 mEq/L (98-107); GLUCOSE 169 mg/dL (70-99); SODIUM LEVEL 134 mEq/L (137-146)
[2016-10-07 08:02] LABS: SEG NEUTROPHIL 93 % (45-76)
[2016-10-07] MEDS: PANTOPRAZOLE 40 MG VIAL IV SCH (09:00)
[2016-10-07] MEDS: METHYLPREDNISOLONE 125 MG/2 ML VIAL IV SCH (09:03)
[2016-10-07] MEDS: MAGNESIUM OXIDE 400 MG TAB PO SCH ×3 (09:04→18:07)
[2016-10-07] MEDS: LEVOTHYROXINE 25 MCG (0.025 MG) TAB PO SCH (09:04)
[2016-10-07] MEDS: Citalopram HBr 40 MG TABLET PO SCH (09:04)
--- NOTE | 2016-10-07 09:31 | GENMEDPROG ---
Chief Complaint: Patient sitting up in chair. Subjective Note: 86-year-old female had episode of stridor several days ago has now recovered. She has been weaned off of oxygen. She is tolerating her breathing treatments. She is having bowel movements. She is tolerating p.o. intake. Notes Reviewed: Yes: Events from last night noted and discussed with Clinical Staff Current Medication List: Reviewed Currently: Reports: Other (Significant amounts of stridor). Denies: Cough, Wheezing, PIERRE, SOB, Nausea and Vomiting, Abdominal Pain DVT Prophylaxis: Yes (SCDs) - Physical Examination Vital Signs and I&O: Last Vital Signs Temp 98.1 F 10/07/16 07:00 Pulse 93 10/07/16 07:00 Resp 20 10/07/16 07:00 BP 172/80 10/07/16 07:00 Pulse Ox 96 10/07/16 09:22 Oxygen Pulse Oxygen Saturation 96 O2 Device Room Air Oxygen Flow Rate 1 Fraction of Inspired Oxygen ( FIO2) Intake & Output 10/04/16 10/05/16 10/06/16 10/07/16 23:59 23:59 23:59 23:59 Intake Total 2630 2325 3383 964 Output Total 1330 2725 950 600 Balance 1300 -400 2433 364 Patient's weight 53.609 kg 53.796 kg 53.342 kg General: Alert, Cooperative HEENT: Normal, PERRLA, EOMI, Other (No stridor.) Respiratory: Normal - CTA. negative: Rhonchi Cardiovascular: Regular rate, Regular rate and rhythm GI: Normal bowel sounds, Tenderness (Incisional expected) Extremities/Musculoskeletal: negative: Edema, Clubbing, Cyanosis Skin: Warm,Dry and Intact, No rashes, No breakdown Psych/Mental Status: Appropriate Lab/DI/Studies Reviewed: Abnormal Lab Results 10/07/16 10/07/16 04:55 04:55 RBC 3.23 L Hgb 9.6 L Hct 28.9 L Seg Neuts % (Manual) 93 H Lymphocytes % (Manual) 3 L Absolute Neutrophils 10.26 H Absolute Lymphocytes 0.32 L Sodium 134 L Glucose 169 H Calculated Osmolality 261 L Calcium 8.2 L - Assessment (1) Laryngeal stridor Acute J38.5 - LARYNGEAL SPASM Comment/Plan: Stridor is resolved. Continue IV steroids today. Switched to oral steroids in a.m. and wean quickly. (2) Small bowel obstruction Resolved K56.69 - OTHER INTESTINAL OBSTRUCTION Comment/Plan: NG tube is out. Patient is tolerating p.o.. (3) Abdominal pain Acute R10.9 - UNSPECIFIED ABDOMINAL PAIN Qualifiers: Abdominal location: generalized Qualified Code(s): R10.84 - Generalized abdominal pain Comment/Plan: Continue management per Dr. Melara. Abdominal pain improving. Expected postop discomfort (4) Aspiration pneumonitis Acute J69.0 - PNEUMONITIS DUE TO INHALATION OF FOOD AND VOMIT Comment/Plan: Cultures negative to date. Zosyn was discontinued September 29. (5) Adult hypothyroidism Chronic E03.9 - HYPOTHYROIDISM, UNSPECIFIED Comment/Plan: Tsh level was low normal at 1.0. (6) Hypomagnesemia Acute E83.42 - HYPOMAGNESEMIA Comment/Plan: Switched to oral medications (7) Dementia arising in the senium and presenium Acute F03.90 - UNSPECIFIED DEMENTIA WITHOUT BEHAVIORAL DISTURBANCE Comment/ Plan: stable, continue to re-orient patient, no family at bedside this morning. - Plan Patient improved today stable to transfer back to [facility]. Disposition Plan: Hopefully to skilled facility. Case Care Discussed with: Patient, Nursing Staff Education/Counseling Given To: Patient Education/Counseling Given Regarding: Diagnosis, Treatment, Prognosis, Disposition Plan Total Time: 45 minutes Critical Care: No Couseling Time (>50% in counseling/coordination): No
[2016-10-07] MEDS: BUDESONIDE 0.5 MG NEB NEB SCH ×2 (09:35→20:31)
[2016-10-07] MEDS: VITAMINS, MULTIPLE CAP PO SCH ×2 (11:48→18:07)
[2016-10-07] MEDS: CALCIUM CARBONATE + VITAMIN D 500 MG TAB PO SCH ×2 (11:48→18:07)
[2016-10-07] MEDS ORDERED: SODIUM CHLORIDE 0.9% 3 ML FLUSH FLUSH PRN (13:47)
--- NOTE | 2016-10-07 13:47 | PCM.SURGRO ---
- Subjective Patient: Reports: No new complaints, Feels better, Flatus, Bowel Movement - Objective / Physical Exam Vital Signs: Temperature: 98.1 F (10/07/16 11:00) HR: 99 (10/07/16 11:00)RR: 20 (10/07/16 11: 00) BP: 144/91 (10/07/16 11:00)Pulse Ox: 96 (10/07/16 11:00) General: Alert, Cooperative HEENT: Normal, PERRLA, EOMI, Other (No stridor.) Respiratory: Normal - CTA. negative: Diminished, Rhonchi Cardiovascular: Regular rate Gastrointestinal: Soft, Bowel Sounds. negative: Distended, Tender Extremities: negative: Swelling, Edema, Clubbing, Cyanosis Psych/Mental Status: Appropriate, Cooperative Neurological: Strength at 5/5 X4 ext, Cranial nerves 3-12 NL Surgical wound: Clean/Dry, Intact, Approximated. negative: Erythema, Discharge - Assessment and Plan (1) Small bowel obstruction Resolved K56.69 - OTHER INTESTINAL OBSTRUCTION Present on Admission: Yes Comment/Plan: Patient markedly improved. Will advance diet and she can be transferred to SNF when a bed is available. (2) Nausea & vomiting Resolved R11.2 - NAUSEA WITH VOMITING, UNSPECIFIED Present on Admission: Yes (3) Hypertension Chronic I10 - ESSENTIAL (PRIMARY) HYPERTENSION essential hypertension I10 - Essential (primary) hypertension (4) Adult hypothyroidism Chronic E03.9 - HYPOTHYROIDISM, UNSPECIFIED
[2016-10-07] MEDS ORDERED: SODIUM CHLORIDE 0.9% 3 ML FLUSH FLUSH SCH (14:00)
[2016-10-07] MEDS ORDERED: Medication Special Instructions SCH (14:00)
[2016-10-07] MEDS: SODIUM CHLORIDE 0.9% 3 ML FLUSH FLUSH SCH (18:07)
[2016-10-07] MEDS: PANTOPRAZOLE 40 MG TAB PO SCH (18:08)
[2016-10-07] MEDS: ACETAMINOPHEN 325 MG/TAB TABLET PO PRN (20:04)
[2016-10-07] MEDS: DOXEPIN 25 MG CAP PO SCH (20:04)
[2016-10-07] MEDS: TEMAZEPAM 15 MG CAP PO PRN (21:27)
[2016-10-08] MEDS: Albuterol/Ipratropium Neb 3 ML NEB NEB SCH ×2 (01:47→08:56)
[2016-10-08 05:03] VITALS: BMI 25.0
[2016-10-08] MEDS: PANTOPRAZOLE 40 MG TAB PO SCH (05:20)
[2016-10-08] MEDS: SODIUM CHLORIDE 0.9% 3 ML FLUSH FLUSH SCH (05:21)
[2016-10-08 06:11] LABS: BLOOD UREA NITROGEN 12 MG/DL (7-17); CALCIUM 8.8 MG/DL (8.4-10.2); CALCULATED OSMOLALITY 267 MOs/Kg (270-290); CHLORIDE 100 mEq/L (98-107); GLUCOSE 82 mg/dL (70-99); SODIUM LEVEL 139 mEq/L (137-146)
[2016-10-08 06:18] LABS: AUTOMATED LYMPH 8.3 % (17-44); AUTOMATED MONOCYTE 6.7 % (3-10); MPV 8.5 fL (7.4-10.4)
[2016-10-08] MEDS ORDERED: PREDNISONE 20 MG TAB PO SCH (08:00)
--- NOTE | 2016-10-08 08:35 | PCM.DCS92 ---
- Final/Secondary Discharge Diagnosis (1) Laryngeal stridor Acute J38.5 - LARYNGEAL SPASM Comment: Stridor is resolved. Continue IV steroids today. Switched to oral steroids in a.m. and wean quickly. (2) Small bowel obstruction Resolved K56.69 - OTHER INTESTINAL OBSTRUCTION Present on Admission: Yes Comment: NG tube is out. Patient is tolerating p.o.. (3) Abdominal pain Acute R10.9 - UNSPECIFIED ABDOMINAL PAIN generalized R10.84 - Generalized abdominal pain Comment: Continue management per Dr. Melara. Abdominal pain improving. Expected postop discomfort (4) Aspiration pneumonitis Acute J69.0 - PNEUMONITIS DUE TO INHALATION OF FOOD AND VOMIT Present on Admission: Yes Comment: Cultures negative to date. Zosyn was discontinued September 29. (5) Adult hypothyroidism Chronic E03.9 - HYPOTHYROIDISM, UNSPECIFIED Comment: Tsh level was low normal at 1.0. (6) Hypomagnesemia Acute E83.42 - HYPOMAGNESEMIA Comment: Switched to oral medications (7) Dementia arising in the senium and presenium Acute F03.90 - UNSPECIFIED DEMENTIA WITHOUT BEHAVIORAL DISTURBANCE Comment: stable, continue to re-orient patient, no family at bedside this morning. Discharge Disposition: Detention Facility Discharge Condition: Improved Cognitive Discharge Status: Cognitive deficits prevent decision making for safety. Fuctional Discharge Status: Walker Assistance, Fall Risk, Deconditioning, Ambulatory Dysfunction Physician Follow up/Referrals: Dilshad Hackett MD [Primary Care Provider] - One Month Home Medications / New Prescriptions: New Magnesium Oxide [Mag-Ox] 400 mg PO TIDWM #30 tablet Oxycodone Immediate Release [Oxycodone Immediate Release (OxyIR)] 10 mg PO Q4H PRN #20 tablet PRN Reason: Severe Pain Pantoprazole Sodium [Protonix] 40 mg PO 0600,1800 #60 tablet Prednisone [Deltasone, Orasone] 40 mg PO DAILYWM #5 tablet Temazepam [Restoril] 15 mg PO 2100,2200 PRN #10 capsule PRN Reason: Sleep Or Insomnia Continue Mv-Mn/FA/Vit K/Lycop/Lut/Zeaxa [Ocuvite Eye + Multi Tablet] 1 tab PO BID Albuterol Sulfate Nebs [Proventil, Ventolin] 3 ml NEB Q6H PRN PRN Reason: Shortness Of Breath Levothyroxine [Synthroid, Levoxyl] 25 mcg PO DAILY Doxepin HCl 150 mg PO QHS Citalopram (anti-depressant) [Celexa] 40 mg PO DAILY Ca/D3/Mag#11/Zinc/Operator Supply/[place]/Bor [Caltrate 600+D Plus Tablet] 1 tab PO BID Fluticasone/Vilanterol [Breo Ellipta 100-25 Mcg INH] 1 puff INH DAILY Polyethylene Glycol 3350 [Miralax] 17 gm PO DAILY PRN PRN Reason: Constipation Albuterol Sulfate [Proair Hfa] 2 puff INH Q4-6H PRN PRN Reason: Shortness Of Breath Nebulizer [Erapid Nebulizer] 1 each .UNKNOWN Loratadine [Claritin] 10 mg PO DAILY Alprazolam [Xanax] 0.25 mg PO BID PRN #20 tablet PRN Reason: agitation Amlodipine [Norvasc] 10 mg PO DAILY PRN #30 tab PRN Reason: BLOOD PRESSURE Oxycodone Immediate Release [Oxycodone Immediate Release (OxyIR)] 5 mg PO Q6H PRN #20 tab PRN Reason: Pain Discontinued Ciprofloxacin HCl [Cipro] 500 mg PO BID #20 tab Discharge Home Medication List Albuterol Sulfate Nebs [Proventil, Ventolin] 3 ml NEB Q6H PRN 05/11/16 [History Confirmed 09/28/16] Ca/D3/Mag#11/Zinc/Operator Supply/[place]/Bor [Caltrate 600+D Plus Tablet] 1 tab PO BID [History Confirmed 09/28/16] Citalopram (anti-depressant) [Celexa] 40 mg PO DAILY 05/11/16 [History Confirmed 09/28/16] Doxepin HCl 150 mg PO QHS 05/11/16 [History Confirmed 09/28/16] Levothyroxine [Synthroid, Levoxyl] 25 mcg PO DAILY 05/11/16 [History Confirmed 09/28/16] Mv-Mn/FA/Vit K/Lycop/Lut/Zeaxa [Ocuvite Eye + Multi Tablet] 1 tab PO BID [History Confirmed 09/28/16] Fluticasone/Vilanterol [Breo Ellipta 100-25 Mcg INH] 1 puff INH DAILY 09/19/16 [ History Confirmed 09/28/16] Albuterol Sulfate [Proair Hfa] 2 puff INH Q4-6H PRN 09/28/16 [History Confirmed 09/28/16] Nebulizer [Erapid Nebulizer] 1 each MC .UNKNOWN 09/28/16 [History Confirmed ] Polyethylene Glycol 3350 [Miralax] 17 gm PO DAILY PRN 09/28/16 [History Confirmed 09/28/16] Loratadine [Claritin] 10 mg PO DAILY 10/01/16 [History Confirmed 10/01/16] Alprazolam [Xanax] 0.25 mg PO BID PRN #20 tablet 10/08/16 [Rx] Amlodipine [Norvasc] 10 mg PO DAILY PRN #30 tab 10/08/16 [Rx] Magnesium Oxide [Mag-Ox] 400 mg PO TIDWM #30 tablet 10/08/16 [Rx] Oxycodone Immediate Release [Oxycodone Immediate Release (OxyIR)] 5 mg PO Q6H PRN #20 tab 10/08/16 [Rx] Oxycodone Immediate Release [Oxycodone Immediate Release (OxyIR)] 10 mg PO Q4H PRN #20 tablet 10/08/16 [Rx] Pantoprazole Sodium [Protonix] 40 mg PO 0600,1800 #60 tablet 10/08/16 [Rx] Prednisone [Deltasone, Orasone] 40 mg PO DAILYWM #5 tablet 10/08/16 [Rx] Temazepam [Restoril] 15 mg PO 2100,2200 PRN #10 capsule 10/08/16 [Rx] New Discharge Medications (Rx) Alprazolam [Xanax] 0.25 mg PO BID PRN #20 tablet 10/08/16 [Rx] Amlodipine [Norvasc] 10 mg PO DAILY PRN #30 tab 10/08/16 [Rx] Magnesium Oxide [Mag-Ox] 400 mg PO TIDWM #30 tablet 10/08/16 [Rx] Oxycodone Immediate Release [Oxycodone Immediate Release (OxyIR)] 5 mg PO Q6H PRN #20 tab 10/08/16 [Rx] Oxycodone Immediate Release [Oxycodone Immediate Release (OxyIR)] 10 mg PO Q4H PRN #20 tablet 10/08/16 [Rx] Pantoprazole Sodium [Protonix] 40 mg PO 0600,1800 #60 tablet 10/08/16 [Rx] Prednisone [Deltasone, Orasone] 40 mg PO DAILYWM #5 tablet 10/08/16 [Rx] Temazepam [Restoril] 15 mg PO 2100,2200 PRN #10 capsule 10/08/16 [Rx] O2 Device: Room Air Diet at Discharge: As Tolerated, Regular Activity: No Restrictions, As Tolerated, No Heavy Lifting Call Office For: Worsening Symptoms, Fever over 100.5, Pain Uncontrolled By Meds - DC Summary Notes HPI/Notes: PRIMARY CARE PROVIDER: Dr. Hackett HPI: The patient is a delightful 86 yo woman with a history of asthma who presents with abdominal pain. She had seen the doctor and it was thought she may have diverticulitis. She was started on ciprofloxacin. Onset: 3 or more days ago. Duration: intermittent. Location: generalized but especially in the periumbilical area. Radiation: to back Character: 04/08. Dull pain. Alleviated by: Nothing. Exacerbated by: Nothing. Associated Symptoms: Nausea. Vomiting frequently. Diarrhea. No constipation or bloody stool. Did have episodes of choking with the vomiting. Chronic mild shortness of breath from asthma but is at baseline. Occasional wheezing and cough. Has had some chronic hip and leg pain, and has been taking prednisone for that, but she has completed the prednisone as of yesterday. Treatments: none at home except usual medications and ciprofloxacin. Hospital Course Note:: Discharge summary on patient named JUDSON HADDAD admitted to [facility] on 09/28/16 by Larry Melara MD. Date of discharge is []. This is a very pleasant 86-year-old female who presented to our hospital with abdominal pain. She was found to have a small-bowel obstruction. On August she underwent Exploratory laparotomy with lysis of adhesions and repair of ventral incisional hernia. She had a slow postop recovery course an was ultimately able to have a bowel movement and had good return of bowel function albeit somewhat slow. On the weekend prior to discharge the patient pulled out her NG tube multiple times and had it replaced multiple times. By Wednesday morning she had developed stridor. Initially I thought that it was related to gastric contents getting on to her vocal cords but appears to have been related to trauma from placement of the NG tube. She was seen in consultation by Dr. Kyler philip and he did a fiberoptic evaluation of her vocal cords and felt that she needed to receive some steroids to decrease the inflammation. She required treatment with racemic epinephrine and morphine nebulizers as well. Her stridor improved over the next 24-36 hours. She never was hypoxic and never had any risk to her airway. Over the next ensuing days her diet was increased and she began to ambulate. At this point she has reached maximum benefit of hospitalization. She is stable for discharge to senior care facility for continued rehabilitation. Medical team conference was held on the patient discussion of diagnosis treatments plans and prognosis as well as disposition. In addition to myself the following team members were present nursing, physical therapy, speech therapy, occupational therapy, case management, social work, nutrition, pocket and pulley machine operator , palliative care, and home health nursing. Input from each discipline was recieved and is incorporated in the plan of care in the medical record as well as in the plans in the progress notes. Total Time: 55 min Code: 42694 (>30min.) - Physical Exam Vital Signs: Last Vital Signs Temp 97.9 F 10/08/16 07:00 Pulse 83 10/08/16 07:00 Resp 20 10/08/16 07:00 BP 153/68 10/08/16 07:00 Pulse Ox 95 10/08/16 07:00 Oxygen Pulse Oxygen Saturation 95 O2 Device Room Air Oxygen Flow Rate 1 Fraction of Inspired Oxygen ( FIO2) Constitutional: No apparent distress, Alert Oriented to: Time, Person, Place - HEENT Head: Normal. negative: Laceration, Tender Eye: Normal. negative: Edema, Scleral Icterus Oropharynx: Normal. negative: Membranes Dry, Red ENT EAC: Normal. negative: Blood TMJ: Normal. negative: Crepitance, Tender Nose: No Symptoms Reported. negative: Abrasion, Bleeding - Respiratory/Cardiovascular Respiratory: Normal - CTA. negative: Diminished, Rhonchi Cardiovascular: Normal (RRR , Normal S1, S2. No murmurs, rubs, or gallops. PMI non-displaced. Carotids: no carotid bruits. No bradycardia or tachycardia. DP pulses 2+ bilaterally.) - GI Auscultation: Decreased. negative: Bruit Palpation: Other (Distended.). negative: Enlarged liver, Enlarged spleen Tenderness: Diffuse, Mild. negative: Guarding, Rebound Ernandez's Sign: Negative Rectal Exam: Deferred - Musculoskeletal Back: CVA Tenderness Extremities: Normal (Normal tone, DP pulses 2+ bilaterally, No cyanosis or edema bilaterally, FROM bilaterally.) - Integumentary Lymphatics: Normal - Neurologic Memory Impaired: Normal Motor Function: Normal (Motor 5/5 throughout.Normal tone, Pulses 2+ No cyanosis or edema, FROM) Cranial Nerve: Normal (CN II-XII intact sensation, strength 5/5) Cerebellar: Normal Mood Description: Normal Thought: Coherent Perception: Normal - Other Exam Other Exam Findings: Laboratory Results - last 24 hr 10/07/16 10/08/16 10/08/16 16:55 05:45 05:45 WBC 9.3 RBC 3.07 L Hgb 9.2 L Hct 27.7 L MCV 90 MCH 29.9 MCHC 33.1 RDW 13.5 Plt Count 319 MPV 8.5 Neut % (Auto) 85.0 H Lymph % (Auto) 8.3 L Ada % (Auto) 6.7 Eos % (Auto) 0.0 Baso % (Auto) 0.0 Absolute Neuts (auto) 7.91 Absolute Lymphs (auto) 0.74 Sodium 139 Potassium 3.2 L Chloride 100 Carbon Dioxide 32 Anion Gap 10 BUN 12 Creatinine 0.80 Estimated GFR (MDRD) > 60 Glucose 82 POC Capillary Glucose 120 H Calculated Osmolality 267 L Calcium 8.8 Magnesium 2.00 Additional clinical data of obstruction, pneumonia, vomiting, NG tube EXAM: CHEST 2 VIEW COMPARISON: Chest x-ray dated 05/13/2016. FINDINGS: Small airspace opacity at the right lung base is compatible with the given history of aspiration pneumonia. Lungs otherwise clear. Heart size is normal. Overall cardiomediastinal silhouette is stable in size and configuration. Multiple air-fluid levels appreciated within the upper abdomen suggesting a more distal small bowel obstruction. Enteric tube in the stomach. IMPRESSION: 1. Small new airspace opacity at the right lung base compatible with the given history of aspiration pneumonia. 2. Air-fluid levels within the upper abdomen compatible with the given clinical data of small bowel obstruction. NG tube in place. Electronically Signed By: Aleksandr Streeter M.D. On: 09/28/2016 07:31 EXAM: CT ABDOMEN AND PELVIS WITH CONTRAST TECHNIQUE: Multidetector CT imaging of the abdomen and pelvis was performed using the standard protocol following bolus administration of intravenous contrast. CONTRAST: 80 cc of Isovue 370. COMPARISON: None available. FINDINGS: Mild patchy and nodular ground-glass opacity within the right lung base, suspicious for small focus of infectious or aspiration pneumonitis. Visualized lung bases are otherwise without acute process. Mild bibasilar atelectasis. Scattered coronary artery calcifications partially visualized. No pleural or pericardial effusion. Liver demonstrates a normal contrast enhanced appearance. Gallbladder absent. Mild intra and extrahepatic biliary dilatation, likely related to post cholecystectomy changes. Spleen, adrenal glands, and pancreas demonstrate a normal contrast enhanced appearance. Kidneys equal in size with symmetric enhancement. Scattered hypodensities within the kidneys too small the characterize, but statistically likely reflects small cysts. No nephrolithiasis or hydronephrosis. No focal enhancing renal mass. Circumferential wall thickening about the distal esophagus, suggesting acute esophagitis. This may be related to recent vomiting as well. Stomach mildly distended with fluid present within the gastric lumen. Multiple dilated loops of small bowel seen clustered within the upper and mid abdomen, measuring up to 3.1 cm. Scattered air-fluid levels present. There is a focal transition point with acute caliber change within the anterior abdomen just to the right of midline (series 3, image 43). Underlying adhesion is suspected. No obstructive mass lesion identified. Ileum is decompressed distally to the level of the ileocecal valve. Findings consistent with mechanical small bowel obstruction. Colon of normal caliber without acute inflammatory changes. Bladder within normal limits. Uterus and ovaries not visualized. No free intraperitoneal air. Small volume free perihepatic fluid, likely reactive. This measures simple fluid density. Fat containing ventral hernia within the right ventral abdomen measures 5 cm. There is curvilinear hypodensity within the left psoas muscle extending from the level of L3-4 inferiorly towards its insertion at the left femur (series 3, image 67). This finding is indeterminate, but does not have the appearance of acute hemorrhage. Left psoas muscle it is mildly enlarged as compared to the right. Extensive atheromatous plaque throughout the intra-abdominal aorta and its branch vessels. No aneurysm. No pathologically enlarged lymph nodes. Scoliosis with advanced multilevel degenerative disc disease and facet arthrosis. No acute osseous abnormality. No worrisome lytic or blastic osseous lesions. Irregularity about the right acetabulum favored to be related to motion. Remotely healed fracture at the right pubis symphysis. Remotely healed left-sided rib fractures also noted. IMPRESSION: 1. Findings consistent with acute small bowel obstruction with focal transition point within the right anterior abdomen. Underlying adhesive disease is suspected. 2. Small volume free fluid within the abdomen, likely reactive. 3. Scattered fluid density within the left psoas muscle, of uncertain etiology and significance. While this finding may reflect sequela of old trauma/chronic hematoma, possible acute infection and/or psoas abscess could also have this appearance. Correlation with physical exam, laboratory values, and history recommended. 4. Patchy and nodular ground-glass opacity within the right lung base, suspicious for small focus of infectious or aspiration pneumonitis. 5. Circumferential wall thickening about the distal esophagus. Finding is nonspecific, but could reflect sequela of esophagitis and/or reflux. Finding may be related to recent vomiting as well. 6. Coronary artery calcifications with extensive atheromatous disease throughout the intra-abdominal aorta and its branch vessels. Electronically Signed By: Felix Waller M.D. On: 09/28/2016 00:06 ABDOMEN - 2 VIEW COMPARISON: 09/28/2016 FINDINGS: Nasogastric tube projects over the stomach. Postoperative midline abdominal kelly noted. Small bowel is diffusely mildly gaseous late distended to a diameter up to 4.4 cm. There is less gas into the cul, which appears relatively decompressed. There does appear to be some gas into the proximal colon. IMPRESSION: Ileus is not excluded but the findings appear more consistent with partial small bowel obstruction. Findings appear similar when compared to prior study. Electronically Signed By: Marcus Payton M.D. On: 10/03/2016 17:07
[2016-10-08] MEDS: BUDESONIDE 0.5 MG NEB NEB SCH (09:01)
[2016-10-08] MEDS: MAGNESIUM OXIDE 400 MG TAB PO SCH ×2 (09:46→12:14)
[2016-10-08] MEDS: Citalopram HBr 40 MG TABLET PO SCH (09:46)
[2016-10-08] MEDS: LEVOTHYROXINE 25 MCG (0.025 MG) TAB PO SCH (09:47)
[2016-10-08] MEDS: CALCIUM CARBONATE + VITAMIN D 500 MG TAB PO SCH (12:14)
[2016-10-08] MEDS: VITAMINS, MULTIPLE CAP PO SCH (12:14)
[2016-10-08 15:53] VITALS: BP 146/65; PULSE 97; TEMP 97.8
== END 2016-10-08 13:25 | DRG 335 ==
LOC: ED 21:02 → ICU 09-28 00:32 → MPS3 09-28 18:57 → ICU 10-05 09:06
PROVIDERS: ADMIT Surgery; ATTEND Hospitalist
PROC: 0WQF0ZZ Repair Abdominal Wall, Open Approach (ICD-10-PCS; 2016-09-28)
PROC: 3E0M05Z Introduction of Adhesion Barrier into Peritoneal Cavity, Open Approach (ICD-10-PCS; 2016-09-28)
PROC: 0D9670Z Drainage of Stomach with Drainage Device, Via Natural or Artificial Opening (ICD-10-PCS; 2016-09-28)
PROC: 0DN80ZZ Release Small Intestine, Open Approach (ICD-10-PCS; principal; 2016-09-28 14:10)
PROC: 0CJY8ZZ Inspection of Mouth and Throat, Via Natural or Artificial Opening Endoscopic (ICD-10-PCS; 2016-10-05)
PROC: 0D9670Z Drainage of Stomach with Drainage Device, Via Natural or Artificial Opening (ICD-10-PCS; 2016-10-05)
DX: K56.5 Intestinal adhesions [bands] with obstruction (postinfection) (principal); J69.0 Pneumonitis due to inhalation of food and vomit; E11.9 Type 2 diabetes mellitus without complications; K91.3 Postprocedural intestinal obstruction; I10 Essential (primary) hypertension; E78.00 Pure hypercholesterolemia, unspecified; J45.909 Unspecified asthma, uncomplicated; K21.9 Gastro-esophageal reflux disease without esophagitis; E03.9 Hypothyroidism, unspecified; M19.90 Unspecified osteoarthritis, unspecified site; F32.9 Major depressive disorder, single episode, unspecified; J38.5 Laryngeal spasm; Z66 Do not resuscitate; Y83.9 Surgical procedure, unspecified as the cause of abnormal reaction of the patient, or of later complication, without mention of misadventure at the time of the procedure; Y73.1 Therapeutic (nonsurgical) and rehabilitative gastroenterology and urology devices associated with adverse incidents; Y92.239 Unspecified place in hospital as the place of occurrence of the external cause; K43.9 Ventral hernia without obstruction or gangrene; E83.42 Hypomagnesemia; F03.90 Unspecified dementia, unspecified severity, without behavioral disturbance, psychotic disturbance, mood disturbance, and anxiety; K20.9 Esophagitis, unspecified; Z90.710 Acquired absence of both cervix and uterus; Z90.49 Acquired absence of other specified parts of digestive tract
CPT/HCPCS: 36415; 51701; 51798; 71020; 74020; 74177; 80048; 80053; 81001; 82150; 82962; 83690; 83735; 85007; 85025; 85027; 87040; 87086; 87641; 93005; 94640; 96361; 96372; 96374; 97162; 98960; 99283; A9698; C9290; E0710; G0237; J0131; J0330; J1170; J1630; J2001; J2405; J2543; J2550; J2710; J2920; J2930; J3010; J3370; J3475; J3480; J3490; J7042; J7060; J7070; J7620; S0164